=== PATIENT | female | born 1995 | race Caucasian/White ===

== ENCOUNTER 2017-08-21 22:44 | Emergency (ER) | payer OTHER ==
[2017-08-21 22:58] VITALS: RESP 18
[2017-08-21 23:19] LABS: Appearance,Urine Clear (Clear); Bilirubin,Urine Negative (Negative); Blood,Urine Negative (Negative); Color,Urine Colorless; Glucose,Urine (UA) Negative (Negative); Ketones,Urine Negative (Negative); Leukocyte Esterase,Urine Negative (Negative); Nitrite,Urine Negative (Negative); Protein,Urine Negative (Negative); Specific Gravity,Urine 1.008 (1.001-1.035); Urobilinogen,Urine <2.0 mg/dL (<2.0)
[2017-08-22] MEDS ORDERED: KETOROLAC 30 MG/ML 1 ML VIAL IVP STA (01:12)
[2017-08-22] MEDS ORDERED: SODIUM CHLORIDE 0.9% 1,000 ML IV STA (01:12)
--- NOTE | 2017-08-22 03:09 | XR ---
EXAMINATION TYPE: XR KUB DATE OF EXAM: 08/22/2017 COMPARISON: NONE HISTORY: Right lower quadrant pain TECHNIQUE: 2 views FINDINGS: There is no sign of intestinal obstruction or pneumoperitoneum. Fecal pattern is normal. Maria Fernanda ng bases are clear. There are no pathologic calcifications over the kidneys. There are clips from cho lecystectomy. There is no sign of a mass. IMPRESSION: Nonacute abdomen.
[2017-08-22] MEDS ORDERED: RX INFO: IV CONTRAST WAS GIVEN 1 EACH MISC MISCELLANE PRN (03:18)
--- NOTE | 2017-08-22 03:20 | ED ---
Abdominal Pain HPI - General Chief Complaint: Abdominal Pain Stated Complaint: lower abd pain Time Seen by Provider: 08/22/17 01:05 Source: patient Mode of arrival: ambulatory Limitations: no limitations - History of Present Illness Initial Comments: 22-year-old female patient presents to the emergency department today for complaints of right-sided abdominal pain that has been present for the last 2 months. Patient states her last 4-5 days she has also been having pain in her suprapubic region with urination. She denies any abnormal vaginal bleeding or discharge. She states that her periods have been irregular over the last couple of months. States that she had spotting throughout each month. Heavy periods at the beginning of July and August. She denies any nausea or vomiting with this. Denies any constipation or diarrhea. States that she was evaluated and can read in emergency department there in June and tested negative for . She denies any fevers or chills. Denies any dizziness or weakness. Patient denies any recent rash, shortness breath, chest pain, back pain, numbness, tingling, hematuria, dysuria, urinary urgency, urinary frequency , headache, visual changes, or any other complaints. - Related Data Home Medications Medication Instructions Recorded Confirmed No Known Home Medications [No 08/21/17 08/21/17 Known Home Medications] Allergies Allergy/AdvReac Type Severity Reaction Status Date / Time Penicillins Allergy Unknown Verified 08/21/17 22:58 Childhood Review of Systems ROS Statement: Those systems with pertinent positive or pertinent negative responses have been documented in the HPI. ROS Other: All systems not noted in ROS Statement are negative. Past Medical History Past Medical History: No Reported History History of Any Multi-Drug Resistant Organisms: None Reported Past Surgical History: Cholecystectomy Past Psychological History: No Psychological Hx Reported Smoking Status: Former smoker Past Alcohol Use History: Rare Past Drug Use History: Marijuana General Exam Limitations: no limitations General appearance: alert, in no apparent distress, other (This is a well- developed, well-nourished adult female patient in no acute distress. Vital signs upon presentation are temperature 99.6F, pulse 102, respirations 18, blood pressure 127/72, pulse ox 100% on room air.) Eye exam: Present: normal appearance, PERRL, EOMI. Absent: scleral icterus, conjunctival injection, periorbital swelling ENT exam: Present: normal exam, normal oropharynx, mucous membranes moist Respiratory exam: Present: normal lung sounds bilaterally. Absent: respiratory distress, wheezes, rales, rhonchi, stridor Cardiovascular Exam: Present: regular rate, normal rhythm, normal heart sounds. Absent: systolic murmur, diastolic murmur, rubs, gallop, clicks GI/Abdominal exam: Present: soft, tenderness (Tenderness over the right lower quadrant and right suprapubic region.), normal bowel sounds. Absent: distended , guarding, rebound, rigid Neurological exam: Present: alert, oriented X3, CN II-XII intact Psychiatric exam: Present: normal affect, normal mood Skin exam: Present: warm, dry, intact, normal color. Absent: rash Course Vital Signs 08/21/17 22:53 Temperature 99.6 F Pulse Rate 102 H Respiratory 18 Rate Blood Pressure 127/72 O2 Sat by Pulse 100 Oximetry Medical Decision Making - Medical Decision Making 22-year-old female patient presented to the emergency department today complaining of right-sided abdominal pain 2 months. Suprapubic pain 5 days. Physical examination did reveal right lower quadrant and suprapubic abdominal tenderness. Labs reviewed and were unremarkable. Urinalysis was negative. HCG was negative. We did perform KUB x-ray of the abdomen showed overall nonobstructive bowel gas pattern. CT of the abdomen and pelvis was obtained and showed a normal appendix and constipation. Did discuss findings with the patient. She is instructed to increase fluids. She is instructed to follow-up with primary care physician for recheck in 1-2 days. She is instructed to return here immediately for any new, worsening, or concerning symptoms. She verbalizes understanding and agrees this plan. - Lab Data Result diagrams: 08/22/17 00:51 08/22/17 00:51 Lab Results 08/21/17 08/21/17 08/22/17 Range/Units 22:59 22:59 00:51 WBC (3.8-10.6) k/uL RBC (3.80-5.40) m/uL Hgb (11.4-16.0) gm/dL Hct (34.0-46.0) % MCV (80.0-100.0) fL MCH (25.0-35.0) pg MCHC (31.0-37.0) g/dL RDW (11.5-15.5) % Plt Count (150-450) k/uL Neutrophils % % Lymphocytes % % Monocytes % % Eosinophils % % Basophils % % Neutrophils # (1.3-7.7) k/uL Lymphocytes # (1.0-4.8) k/uL Monocytes # (0-1.0) k/uL Eosinophils # (0-0.7) k/uL Basophils # (0-0.2) k/uL Sodium 143 (137-145) mmol/L Potassium 4.1 (3.5-5.1) mmol/L Chloride 106 (98-107) mmol/L Carbon Dioxide 24 (22-30) mmol/L Anion Gap 13 mmol/L BUN 16 (7-17) mg/dL Creatinine 0.70 (0.52-1.04) mg/dL Est GFR (CKD-EPI)AfAm >90 (>60 ml/min/1.73 sqM) Est GFR (CKD-EPI)NonAf >90 (>60 ml/min/1.73 sqM) Glucose 85 (74-99) mg/dL Calcium 9.9 (8.4-10.2) mg/dL Total Bilirubin 0.3 (0.2-1.3) mg/dL AST 20 (14-36) U/L ALT 15 (9-52) U/L Alkaline Phosphatase 57 (38-126) U/L Total Protein 7.6 (6.3-8.2) g/dL Albumin 4.6 (3.5-5.0) g/dL Amylase 74 (30-110) U/L Lipase 62 (23-300) U/L Urine Color Colorless Urine Appearance Clear (Clear) Urine pH 7.0 (5.0-8.0) Ur Specific [place] 1.008 (1.001-1.035) Urine Protein Negative (Negative) Urine Glucose (UA) Negative (Negative) Urine Ketones Negative (Negative) Urine Blood Negative (Negative) Urine Nitrite Negative (Negative) Urine Bilirubin Negative (Negative) Urine Urobilinogen <2.0 (<2.0) mg/dL Ur Leukocyte Esterase Negative (Negative) Urine HCG, Qual Not Detected (Not Detectd) 08/22/17 Range/Units 00:51 WBC 9.6 (3.8-10.6) k/uL RBC 4.31 (3.80-5.40) m/uL Hgb 12.9 (11.4-16.0) gm/dL Hct 38.3 (34.0-46.0) % MCV 88.8 (80.0-100.0) fL MCH 29.9 (25.0-35.0) pg MCHC 33.6 (31.0-37.0) g/dL RDW 12.7 (11.5-15.5) % Plt Count 343 (150-450) k/uL Neutrophils % 55 % Lymphocytes % 34 % Monocytes % 6 % Eosinophils % 3 % Basophils % 0 % Neutrophils # 5.2 (1.3-7.7) k/uL Lymphocytes # 3.3 (1.0-4.8) k/uL Monocytes # 0.6 (0-1.0) k/uL Eosinophils # 0.3 (0-0.7) k/uL Basophils # 0.0 (0-0.2) k/uL Sodium (137-145) mmol/L Potassium (3.5-5.1) mmol/L Chloride (98-107) mmol/L Carbon Dioxide (22-30) mmol/L Anion Gap mmol/L BUN (7-17) mg/dL Creatinine (0.52-1.04) mg/dL Est GFR (CKD-EPI)AfAm (>60 ml/min/1.73 sqM) Est GFR (CKD-EPI)NonAf (>60 ml/min/1.73 sqM) Glucose (74-99) mg/dL Calcium (8.4-10.2) mg/dL Total Bilirubin (0.2-1.3) mg/dL AST (14-36) U/L ALT (9-52) U/L Alkaline Phosphatase (38-126) U/L Total Protein (6.3-8.2) g/dL Albumin (3.5-5.0) g/dL Amylase (30-110) U/L Lipase (23-300) U/L Urine Color Urine Appearance (Clear) Urine pH (5.0-8.0) Ur Specific [place] (1.001-1.035) Urine Protein (Negative) Urine Glucose (UA) (Negative) Urine Ketones (Negative) Urine Blood (Negative) Urine Nitrite (Negative) Urine Bilirubin (Negative) Urine Urobilinogen (<2.0) mg/dL Ur Leukocyte Esterase (Negative) Urine HCG, Qual (Not Detectd) - Radiology Data Radiology results: report reviewed, image reviewed Two-view x-ray of the abdomen shows no sign of intestinal structure pneumoperitoneum. Fecal pattern is normal. Lung bases are clear. There is no sign of pathologic calcifications over the kidneys. There are clips from cholecystectomy. There is no sign of a mass. Impression by Dr. Reddy shows nonacute abdomen. CT of the abdomen and pelvis with contrast was obtained, report was reviewed in its entirety. Impression by Dr. Reddy shows constipation. Normal appendix. Disposition Clinical Impression: Abdominal pain Disposition: HOME SELF-CARE Condition: Good Instructions: Abdominal Pain (ED) Additional Instructions: Follow up with primary care physician for further evaluation. Return here immediately for any new, worsening, or concerning symptoms. Referrals: Tod Martínez MD [REFERRING] - 1-2 days Time of Disposition: 04:47
[2017-08-22 04:00] LABS: Basophils % (A) 0 %; Eosinophils # (A) 0.3 k/uL (0-0.7); Eosinophils % (A) 3 %; HCT 38.3 % (34.0-46.0); HGB 12.9 gm/dL (11.4-16.0); Lymphocytes # (A) 3.3 k/uL (1.0-4.8); Lymphocytes % (A) 34 %; MCH 29.9 pg (25.0-35.0); MCHC 33.6 g/dL (31.0-37.0); MCV 88.8 fL (80.0-100.0); Mean Platelet Volume 6.7; Monocytes # (A) 0.6 k/uL (0-1.0); Monocytes % (A) 6 %; Neutrophils # (A) 5.2 k/uL (1.3-7.7); Neutrophils % (A) 55 %; Platelet Count 343 k/uL (150-450); RBC 4.31 m/uL (3.80-5.40); RDW 12.7 % (11.5-15.5); WBC 9.6 k/uL (3.8-10.6)
--- NOTE | 2017-08-22 04:17 | CT ---
EXAMINATION TYPE: CT abdomen pelvis w con DATE OF EXAM: 08/22/2017 COMPARISON: NONE HISTORY: RLQ pain, and pain when urinating, no prior, neg hcg CT DLP: 327.60 mGycm Automated exposure control for dose reduction was used. TECHNIQUE: Helical acquisition of images was performed from the lung bases through the pelvis. CONTRAST: Performed without Oral Contrast and with IV Contrast, patient injected with 100 mL of Omnipaque 300. FINDINGS: Lung bases are clear. There is no pleural effusion. Heart size is normal. There is no pericardial eff usion. Liver spleen pancreas appear normal. There are clips from cholecystectomy. Bile ducts are not dilated . There is no adrenal mass. Kidneys show satisfactory contrast opacification. There is no hydronephrosi s. There is no retroperitoneal adenopathy. There is no ascites. There is no sign of free air. There i s retained fecal material in the colon. Bladder distends smoothly. There is no sign of a pelvic mass. Appendix appears normal. I see no bony destructive process. Uterus is anteverted. I see no intestinal wall thickening. There a re no dilated loops of small bowel. There is retained fecal material in the rectosigmoid colon. IMPRESSION: CONSTIPATION. NORMAL APPENDIX.
[2017-08-22 04:31] LABS: ALT 15 U/L (9-52); AST 20 U/L (14-36); Albumin 4.6 g/dL (3.5-5.0); Alkaline Phosphatase 57 U/L (38-126); Amylase 74 U/L (30-110); Anion Gap 13 mmol/L; Blood Urea Nitrogen 16 mg/dL (7-17); Calcium 9.9 mg/dL (8.4-10.2); Carbon Dioxide 24 mmol/L (22-30); Chloride 106 mmol/L (98-107); Glucose 85 mg/dL (74-99); Lipase 62 U/L (23-300); Potassium 4.1 mmol/L (3.5-5.1); Sodium 143 mmol/L (137-145); Total Bilirubin 0.3 mg/dL (0.2-1.3); Total Protein 7.6 g/dL (6.3-8.2)
[2017-08-22 05:39] VITALS: BP 133/74; PULSE 87; TEMP 98.9
== END 2017-08-22 05:39 | disposition home or self-care (01) ==
LOC: EC 22:44
DX: R10.30 Lower abdominal pain, unspecified (principal); N92.0 Excessive and frequent menstruation with regular cycle; K59.00 Constipation, unspecified; Z87.891 Personal history of nicotine dependence; Z90.49 Acquired absence of other specified parts of digestive tract; Z88.0 Allergy status to penicillin
CPT/HCPCS: 99284; 96374; 96361; 36415; 80053; 82150; 83690; 85025; 81003; 81025; 74018; 74177; J1885; Q9967

== ENCOUNTER 2018-01-02 02:28 | Observation (INO) | payer OTHER ==
[2018-01-02] MEDS ORDERED: ONDANSETRON 4 MG/2 ML VIAL IVP STA (02:58)
[2018-01-02] MEDS ORDERED: MORPHINE SULFATE 4 MG/ML SYRINGE IV STA (02:58)
[2018-01-02] MEDS ORDERED: SODIUM CHLORIDE 0.9% 1,000 ML IV STA (02:58)
--- NOTE | 2018-01-02 03:02 | ED ---
General Adult HPI - General Chief complaint: Abdominal Pain Stated complaint: abd/back pain Time Seen by Provider: 01/02/18 02:48 Source: patient, family, RN notes reviewed Mode of arrival: ambulatory Limitations: no limitations - History of Present Illness Initial comments: 22-year-old female presents to the emergency department for a chief complaint of lower abdominal pain 3 hours. Patient states it lasted for about 30 minutes yesterday but went away. Patient states she went to lay down today to let it pass but it would not go away. Patient states the pain is originating in the right lower abdomen. Patient states it is radiating to her back and to the left side of her abdomen. No nausea or vomiting. Patient states pain is worse with movement and hurts with each step she takes. Patient has no other complaints at this time including shortness of breath, chest pain, abdominal pain, nausea or vomiting, headache, or visual changes. - Related Data Home Medications Medication Instructions Recorded Confirmed Acetaminophen Tab [Tylenol Tab] 500 mg PO Q6HR PRN 01/02/18 01/02/18 Allergies Allergy/AdvReac Type Severity Reaction Status Date / Time Penicillins Allergy Unknown Verified 01/02/18 12:25 Childhood Review of Systems ROS Statement: Those systems with pertinent positive or pertinent negative responses have been documented in the HPI. ROS Other: All systems not noted in ROS Statement are negative. Past Medical History Past Medical History: No Reported History History of Any Multi-Drug Resistant Organisms: None Reported Past Surgical History: Cholecystectomy Past Psychological History: No Psychological Hx Reported Smoking Status: Former smoker Past Alcohol Use History: Rare Past Drug Use History: Marijuana - Past Family History Mother History Unknown: Yes Sister(s) Family Medical History: Diabetes Mellitus General Exam Limitations: no limitations General appearance: alert, in no apparent distress Head exam: Present: atraumatic, normocephalic, normal inspection Respiratory exam: Present: normal lung sounds bilaterally. Absent: respiratory distress, wheezes, rales, rhonchi, stridor Cardiovascular Exam: Present: regular rate, normal rhythm, normal heart sounds. Absent: systolic murmur, diastolic murmur, rubs, gallop, clicks GI/Abdominal exam: Present: soft, tenderness (RLQ and LLQ tenderness), guarding. Absent: rebound, rigid Course Vital Signs 01/02/18 01/02/18 01/02/18 02:30 04:30 06:00 Temperature 98.4 F 98.4 F Pulse Rate 118 H 74 95 Respiratory 20 15 16 Rate Blood Pressure 118/72 114/58 110/63 O2 Sat by Pulse 100 100 100 Oximetry Medical Decision Making - Medical Decision Making 22-year-old female presents to the emergency department for a chief complaint of right lower quadrant pain 3 hours. Pain was also apparent yesterday for 30 minutes that went away. Today, pain is not subsiding. On exam patient has exquisite right lower quadrant tenderness as well as mild left lower quadrant tenderness. CBC and CMP unremarkable. Urine hCG was positive. Serum hCG Quant is 455. Patient reports her periods was last week and ended yesterday. Ultrasound shows no intrauterine gestational sac seen. There is some brief fluid in the right adnexal region with some complex right adnexal density that measures 4.5 x 2.5 cm. No evidence of ovarian torsion. Possible ectopic . Patient will be admitted to Dr. Branch as spoken with by Dr. Encarnacion. Care was taken over by Dr Encarnacion at 0500. Patient was seen by Dr Encarnacion as well - Lab Data Result diagrams: 01/02/18 03:17 01/02/18 03:17 Lab Results 01/02/18 01/02/18 01/02/18 Range/Units 03:17 03:17 03:17 WBC 11.1 H (3.8-10.6) k/uL RBC 4.46 (3.80-5.40) m/uL Hgb 13.2 (11.4-16.0) gm/dL Hct 39.2 (34.0-46.0) % MCV 88.0 (80.0-100.0) fL MCH 29.5 (25.0-35.0) pg MCHC 33.5 (31.0-37.0) g/dL RDW 12.8 (11.5-15.5) % Plt Count 305 (150-450) k/uL Neutrophils % 62 % Lymphocytes % 29 % Monocytes % 6 % Eosinophils % 2 % Basophils % 0 % Neutrophils # 6.8 (1.3-7.7) k/uL Lymphocytes # 3.2 (1.0-4.8) k/uL Monocytes # 0.6 (0-1.0) k/uL Eosinophils # 0.3 (0-0.7) k/uL Basophils # 0.0 (0-0.2) k/uL Sodium 139 (137-145) mmol/L Potassium 4.2 (3.5-5.1) mmol/L Chloride 105 (98-107) mmol/L Carbon Dioxide 22 (22-30) mmol/L Anion Gap 12 mmol/L BUN 17 (7-17) mg/dL Creatinine 0.80 (0.52-1.04) mg/dL Est GFR (CKD-EPI)AfAm >90 (>60 ml/min/1.73 sqM) Est GFR (CKD-EPI)NonAf >90 (>60 ml/min/1.73 sqM) Glucose 92 (74-99) mg/dL Calcium 9.8 (8.4-10.2) mg/dL Total Bilirubin 0.4 (0.2-1.3) mg/dL AST 22 (14-36) U/L ALT 27 (9-52) U/L Alkaline Phosphatase 61 (38-126) U/L Total Protein 7.7 (6.3-8.2) g/dL Albumin 4.7 (3.5-5.0) g/dL Amylase 77 (30-110) U/L Lipase 53 (23-300) U/L HCG, Quant mIU/mL Urine Color Urine Appearance (Clear) Urine pH (5.0-8.0) Ur Specific [place] (1.001-1.035) Urine Protein (Negative) Urine Glucose (UA) (Negative) Urine Ketones (Negative) Urine Blood (Negative) Urine Nitrite (Negative) Urine Bilirubin (Negative) Urine Urobilinogen (<2.0) mg/dL Ur Leukocyte Esterase (Negative) Urine HCG, Qual Detected (Not Detectd) 01/02/18 01/02/18 Range/Units 03:17 03:17 WBC (3.8-10.6) k/uL RBC (3.80-5.40) m/uL Hgb (11.4-16.0) gm/dL Hct (34.0-46.0) % MCV (80.0-100.0) fL MCH (25.0-35.0) pg MCHC (31.0-37.0) g/dL RDW (11.5-15.5) % Plt Count (150-450) k/uL Neutrophils % % Lymphocytes % % Monocytes % % Eosinophils % % Basophils % % Neutrophils # (1.3-7.7) k/uL Lymphocytes # (1.0-4.8) k/uL Monocytes # (0-1.0) k/uL Eosinophils # (0-0.7) k/uL Basophils # (0-0.2) k/uL Sodium (137-145) mmol/L Potassium (3.5-5.1) mmol/L Chloride (98-107) mmol/L Carbon Dioxide (22-30) mmol/L Anion Gap mmol/L BUN (7-17) mg/dL Creatinine (0.52-1.04) mg/dL Est GFR (CKD-EPI)AfAm (>60 ml/min/1.73 sqM) Est GFR (CKD-EPI)NonAf (>60 ml/min/1.73 sqM) Glucose (74-99) mg/dL Calcium (8.4-10.2) mg/dL Total Bilirubin (0.2-1.3) mg/dL AST (14-36) U/L ALT (9-52) U/L Alkaline Phosphatase (38-126) U/L Total Protein (6.3-8.2) g/dL Albumin (3.5-5.0) g/dL Amylase (30-110) U/L Lipase (23-300) U/L HCG, Quant 455.2 mIU/mL Urine Color Colorless Urine Appearance Clear (Clear) Urine pH 7.0 (5.0-8.0) Ur Specific [place] 1.008 (1.001-1.035) Urine Protein Negative (Negative) Urine Glucose (UA) Negative (Negative) Urine Ketones Negative (Negative) Urine Blood Negative (Negative) Urine Nitrite Negative (Negative) Urine Bilirubin Negative (Negative) Urine Urobilinogen <2.0 (<2.0) mg/dL Ur Leukocyte Esterase Negative (Negative) Urine HCG, Qual (Not Detectd) Disposition Clinical Impression: Abdominal pain, Disposition: ADMITTED IP TO THIS [facility] Is patient prescribed a controlled substance at d/c from ED?: No Time of Disposition: 05:07
[2018-01-02 03:31] LABS: Basophils % (A) 0 %; Eosinophils # (A) 0.3 k/uL (0-0.7); Eosinophils % (A) 2 %; HCT 39.2 % (34.0-46.0); HGB 13.2 gm/dL (11.4-16.0); Lymphocytes # (A) 3.2 k/uL (1.0-4.8); Lymphocytes % (A) 29 %; MCH 29.5 pg (25.0-35.0); MCHC 33.5 g/dL (31.0-37.0); Mean Platelet Volume 6.5; Monocytes # (A) 0.6 k/uL (0-1.0); Monocytes % (A) 6 %; Neutrophils # (A) 6.8 k/uL (1.3-7.7); Neutrophils % (A) 62 %; Platelet Count 305 k/uL (150-450); RBC 4.46 m/uL (3.80-5.40); RDW 12.8 % (11.5-15.5); WBC 11.1 k/uL (3.8-10.6)
[2018-01-02 03:34] LABS: Appearance,Urine Clear (Clear); Bilirubin,Urine Negative (Negative); Blood,Urine Negative (Negative); Color,Urine Colorless; Glucose,Urine (UA) Negative (Negative); Ketones,Urine Negative (Negative); Leukocyte Esterase,Urine Negative (Negative); Nitrite,Urine Negative (Negative); Protein,Urine Negative (Negative); Specific Gravity,Urine 1.008 (1.001-1.035); Urobilinogen,Urine <2.0 mg/dL (<2.0)
[2018-01-02 03:43] LABS: ALT 27 U/L (9-52); AST 22 U/L (14-36); Albumin 4.7 g/dL (3.5-5.0); Alkaline Phosphatase 61 U/L (38-126); Amylase 77 U/L (30-110); Anion Gap 12 mmol/L; Blood Urea Nitrogen 17 mg/dL (7-17); Calcium 9.8 mg/dL (8.4-10.2); Carbon Dioxide 22 mmol/L (22-30); Chloride 105 mmol/L (98-107); Glucose 92 mg/dL (74-99); Lipase 53 U/L (23-300); Potassium 4.2 mmol/L (3.5-5.1); Sodium 139 mmol/L (137-145); Total Bilirubin 0.4 mg/dL (0.2-1.3); Total Protein 7.7 g/dL (6.3-8.2)
--- NOTE | 2018-01-02 04:01 | US ---
EXAMINATION TYPE: Transabdominal DATE OF EXAM: 09/14/17 COMPARISON: NONE CLINICAL HISTORY: RLQ Pain. HCG was detected in the patient's urine after ultrasound was performed. P atient states she had her LMP 1 week ago. EXAM PERFORMED: Transvaginal (TV) and Transabdominal (TA) EXAM MEASUREMENTS: GESTATIONAL AGE / DATING Physician Established: Not yet established Dates by LMP: LMP unknown Dates by First Scan: No previous this is first scan Dates by Current Scan for: No IUP seen at this time MATERNAL ANATOMY Uterus: 6.8 x 3.7 x 3.7 cm Right Ovary: Not visualized with certainty Left Ovary: 2.3 x 1.6 x 1.5 cm Post CDS / Adnexa: Complex fluid visualized within the cul de sac. There is a complex area visualized within the right adnexa measuring 5.4 x 2.7 x 5.1 cm. There is vascularity within this area. Presence of free fluid: Yes, within the right adnexa GESTATION / SURVEY IUP: No IUP seen at this time Beta HcG (if available): Not available at this time, detected in urine. No IUP visualized. Complex fluid visualized within the cul de sac. There is a complex area visualized within the right adnexa measuring 5.4 x 2.7 x 5.1 cm. There is vascularity within this area. Possibl e ectopic vs other IMPRESSION: No intrauterine gestational sac seen. There is some free fluid in the right adnexal region with some complex right adnexal density that measures 4.5 x 2.5 cm. No evidence of ovarian torsion. The possibi lity of ectopic should be considered.
[2018-01-02] MEDS ORDERED: NALOXONE 0.4 MG/ML 1 ML VIAL IV PRN (05:11)
[2018-01-02] MEDS ORDERED: ACETAMINOPHEN TAB 500 MG TAB PO PRN (05:11)
[2018-01-02] MEDS: SODIUM CHLORIDE 0.9% 1,000 ML IV SCH ×2 (05:30→15:38)
[2018-01-02 06:48] VITALS: BMI 21.9
--- NOTE | 2018-01-02 09:41 | P.HPOB ---
History of Present Illness H&P Date: 01/02/18 Chief Complaint: Right lower quadrant pain for 2 days This is a 22-year-old white female 2 para 0010 LMP 12/22/2017 at 1-4/7 weeks' gestation. Patient states she began experiencing right lower quadrant pain 2 days ago, worse with walking and straining at the commode. The pain improved, but got worse again last night. It is now an 6-8 out of 10, and radiating to the back. She denies lightheadedness or dizziness. She has scant vaginal bleeding. She is using nothing currently for contraception. She denies nausea and vomiting or any other symptomatology. Past medical history is essentially negative. Past surgical history cholecystectomy 2011. Current medications none. ALLERGIES none known. Social history patient is a recovered methadone addict, last used in 2016. She previously used marijuana. She denies tobacco or alcohol use. She is recently . [employer] history menarche began at age of 11 with 30 day interval and 5-7 day duration. Most recent menses lasted 7 days. She had a chlamydial infection treated with antibiotics in 2016. She also had a spontaneous AB in 2016 not requiring D&C. She denies HPV, HSV, or gonorrheal infections. Family history is unremarkable and noncontributory. On exam this is a pleasant young female, 5 foot 2 inches, 128 pounds, vital signs are stable and patient is afebrile. Pulse is 96, blood pressure 110/68. Gen. physical exam is remarkable for 7 tattoos. Chest is clear in all mancera anteriorly and posteriorly. Cardiac exam reveals regular rate and rhythm with no murmur click or rub. Abdomen is soft, tender in the right lower quadrant with minimal rebound, no CVA tenderness. Extremities reveal no edema. Pelvic exam reveals a small anteverted anteflex uterus, right adnexal fullness and tenderness, left adnexa negative. There is dark red vaginal bleeding on the examination glove. Hemoglobin 13.2, hematocrit 39.2, platelets 305,000, WBCs 11.1. Beta hCG 455. AST, ALTs, BUN/creatinine all normal. Ultrasound reveals a uterus 6.8 x 3.7 x 3.7 cm, left adnexa negative, right adnexa with 8 complex appearing cyst 5.4 x 2.7 x 5.1 cm, suspicious for ectopic . No obvious fetus or heartbeat is noted. Intrauterine cavity is negative. Impression: 1-4/7 weeks , suspected right ectopic . Plan: I discussed with the patient operative intervention versus methotrexate. We have decided to proceed with methotrexate, 50 mg/m. We will dose this through the pharmacy an enterprise systems administrator at this time. We will watch the patient overnight, clear liquids, if she does well clinically likely discharge home in the morning. Review of Systems Constitutional: Reports as per HPI Past Medical History Past Medical History: No Reported History Additional Past Medical History / Comment(s): had a miscarraige in 2016 History of Any Multi-Drug Resistant Organisms: None Reported Past Surgical History: Cholecystectomy Past Psychological History: No Psychological Hx Reported Smoking Status: Never smoker Past Alcohol Use History: Rare Past Drug Use History: Marijuana - Past Family History Mother History Unknown: Yes Sister(s) Family Medical History: Diabetes Mellitus Medications and Allergies Home Medications Medication Instructions Recorded Confirmed Type No Known Home Medications 08/21/17 01/02/18 History Allergies Allergy/AdvReac Type Severity Reaction Status Date / Time Penicillins Allergy Unknown Verified 01/02/18 02:36 Childhood Exam Vital Signs Temp Pulse Pulse Resp BP BP Pulse Ox 01/02/18 06:36 98.4 F 96 18 110/68 100 01/02/18 06:00 98.4 F 95 16 110/63 100 01/02/18 04:30 74 15 114/58 100 01/02/18 02:30 98.4 F 118 H 20 118/72 100 Intake and Output 01/01/18 01/02/18 01/02/18 22:59 06:59 14:59 Output Total 500 Balance -500 Output: Urine 500 Other: Voiding Method Toilet # Voids 1 Weight 54.431 kg See dictation under HPI please Results Result Diagrams: 01/02/18 03:17 01/02/18 03:17 Abnormal Lab Results - Last 24 Hours (Table) 01/02/18 Range/Units 03:17 WBC 11.1 H (3.8-10.6) k/uL Assessment and Plan Assessment: Right ectopic at 1-4/7 weeks' gestation Plan: Due to the very early gestational age, and patient's stable clinical status, we will proceed with methotrexate per protocol, dosed at 50 mg/m. I will continue to observe the patient through the night, and likely discharge home in the morning. Type and screen. Time with Patient: Greater than 30
[2018-01-02] MEDS ORDERED: METHOTREXATE SODIUM (PF) 25 MG/ML 2 ML VIAL IM ONE ×3 (09:45→11:00)
[2018-01-02] MEDS: MORPHINE SULFATE 2 MG/ML SYRINGE IVP PRN ×3 (10:29→20:09)
[2018-01-03 00:39] VITALS: TEMP 97.9
[2018-01-03] MEDS: MORPHINE SULFATE 2 MG/ML SYRINGE IVP PRN (00:40)
[2018-01-03] MEDS: SODIUM CHLORIDE 0.9% 1,000 ML IV SCH (00:45)
[2018-01-03] MEDS ORDERED: IBUPROFEN 400 MG TAB PO PRN (06:22)
--- NOTE | 2018-01-03 07:46 | P.DS ---
Providers Date of admission: 01/02/18 05:39 Expected date of discharge: 01/03/18 Attending physician: Saloni Branch Primary care physician: Stated None Hospital Course: This is a 22-year-old white female 2 para 0010 who presented to the emergency room with right lower quadrant pain. Beta hCG was done and was positive, by last menstrual period patient would be 1 week and 4 days. Hemoglobin and vital signs are stable. Ultrasound revealed negative intrauterine cavity with a complex area noted on the right adnexa, consistent with ectopic . Methotrexate was dosed and given, please see admitting H&P for details. This morning the patient is having a small amount of dark red vaginal bleeding. Her pain is improved, she still is tender in the right lower quadrant. She is voiding, ambulating, and passing flatus without difficulty. She is tolerating regular food. Her vital signs are stable and she is hemodynamically stable as well. Plan is to manage patient conservatively. The methotrexate protocol will be followed, lab slips are given for repeat blood work. Patient's blood type is A+ , RhoGam is not indicated. Patient will be discharged home today, she is in good condition for discharge. She will use [id number] ibuprofen products as needed for pain. I've asked her to call me with any lightheadedness or dizziness, with an increase in the pain, with any issues not alleviated by over- the-counter medications, or indeed with any concerns. She will follow-up in the office with me in 1 week and will call for that appointment. Patient Condition at Discharge: Good Plan - Discharge Summary New Discharge Prescriptions: No Action Acetaminophen Tab [Tylenol Tab] 500 mg PO Q6HR PRN PRN Reason: Pain Discharge Medication List Acetaminophen Tab [Tylenol Tab] 500 mg PO Q6HR PRN 01/02/18 [History] Follow up Appointment(s)/Referral(s): None,Stated [Primary Care Provider] - 1 Week Saloni Branch MD [STAFF PHYSICIAN] - 1 Week Discharge Disposition: HOME SELF-CARE
[2018-01-03 09:44] LABS: HCT 33.5 % (34.0-46.0); HGB 11.1 gm/dL (11.4-16.0); MCH 29.5 pg (25.0-35.0); MCHC 33.3 g/dL (31.0-37.0); MCV 88.6 fL (80.0-100.0); RBC 3.78 m/uL (3.80-5.40); RDW 12.9 % (11.5-15.5); WBC 6.1 k/uL (3.8-10.6)
[2018-01-03 09:45] LABS: Basophils % (A) 0 %; Eosinophils # (A) 0.1 k/uL (0-0.7); Eosinophils % (A) 2 %; Lymphocytes # (A) 1.7 k/uL (1.0-4.8); Lymphocytes % (A) 27 %; Mean Platelet Volume 6.6; Monocytes # (A) 0.5 k/uL (0-1.0); Monocytes % (A) 8 %; Neutrophils # (A) 3.8 k/uL (1.3-7.7); Neutrophils % (A) 62 %; Platelet Count 250 k/uL (150-450)
[2018-01-03 09:46] VITALS: BP 111/74; PULSE 68; RESP 18
== END 2018-01-03 10:54 | disposition home or self-care (01) ==
LOC: EC 02:28 → 6PED 05:39
PROVIDERS: ADMIT Obstetrics & Gynecology; ATTEND Obstetrics & Gynecology
DX: O00.90 Unspecified ectopic pregnancy without intrauterine pregnancy (principal); Z3A.01 Less than 8 weeks gestation of pregnancy; Z88.0 Allergy status to penicillin; Z90.49 Acquired absence of other specified parts of digestive tract; Z87.891 Personal history of nicotine dependence; F11.21 Opioid dependence, in remission; Z86.19 Personal history of other infectious and parasitic diseases; Z87.59 Personal history of other complications of pregnancy, childbirth and the puerperium; Z83.3 Family history of diabetes mellitus
CPT/HCPCS: 99285 ×2; 96374 ×2; 96375 ×2; 96361 ×2; 96372; 96376 ×2; 36415; 86900; 86901; 80053; 82150; 83690; 85025 ×2; 86850; 81003; 81025; 84702; 87086; 93975; 76801; 76817; G0378 ×2; J2270 ×3; J9260; J2405

== ENCOUNTER → 2018-01-06 | Outpatient (CLI) | payer OTHER | END | disposition home or self-care (01) | LOC: LABWHC1 11:21 | PROVIDERS: ATTEND Obstetrics & Gynecology | DX: O00.90 Unspecified ectopic pregnancy without intrauterine pregnancy (principal); Z3A.00 Weeks of gestation of pregnancy not specified | CPT/HCPCS: 36415; 84702 ==

== ENCOUNTER → 2018-01-09 | Outpatient (CLI) | payer OTHER ==
[2018-01-09 20:22] LABS: HGB 12.6 gm/dL (11.4-16.0); MCH 29.9 pg (25.0-35.0); MCHC 33.2 g/dL (31.0-37.0); Mean Platelet Volume 6.1; Platelet Count 383 k/uL (150-450); RBC 4.22 m/uL (3.80-5.40); RDW 13.3 % (11.5-15.5); WBC 7.3 k/uL (3.8-10.6)
[2018-01-09 20:30] LABS: ALT 64 U/L (9-52); AST 22 U/L (14-36); Blood Urea Nitrogen 13 mg/dL (7-17)
[2018-01-09 20:47] LABS: HCG,Quantitative Serum 151.8 mIU/mL
== END | disposition home or self-care (01) ==
LOC: LABMAIN 19:40
PROVIDERS: ATTEND Obstetrics & Gynecology
DX: O00.90 Unspecified ectopic pregnancy without intrauterine pregnancy (principal); Z3A.00 Weeks of gestation of pregnancy not specified
CPT/HCPCS: 36415; 82565; 84450; 84460; 84520; 84702; 85027

== ENCOUNTER → 2018-02-07 | Outpatient (CLI) | payer OTHER ==
[2018-02-07 10:13] LABS: Basophils % (A) 1 %; Eosinophils # (A) 0.2 k/uL (0-0.7); Eosinophils % (A) 3 %; HCT 39.9 % (34.0-46.0); HGB 12.9 gm/dL (11.4-16.0); Lymphocytes # (A) 3.1 k/uL (1.0-4.8); Lymphocytes % (A) 45 %; MCH 29.4 pg (25.0-35.0); MCHC 32.3 g/dL (31.0-37.0); Mean Platelet Volume 6.1; Monocytes # (A) 0.4 k/uL (0-1.0); Monocytes % (A) 6 %; Neutrophils % (A) 43 %; Platelet Count 336 k/uL (150-450); RBC 4.39 m/uL (3.80-5.40); RDW 13.3 % (11.5-15.5); WBC 6.9 k/uL (3.8-10.6)
[2018-02-07 11:01] LABS: ALT 35 U/L (9-52); AST 23 U/L (14-36); Albumin 4.8 g/dL (3.5-5.0); Alkaline Phosphatase 66 U/L (38-126); Anion Gap 12 mmol/L; Blood Urea Nitrogen 16 mg/dL (7-17); Carbon Dioxide 25 mmol/L (22-30); Chloride 103 mmol/L (98-107); Cholesterol 231 mg/dL (<200); Glucose 89 mg/dL (74-99); HDL Cholesterol 64 mg/dL (40-60); LDL Cholesterol,Calculated 151 mg/dL (0-99); Potassium 4.9 mmol/L (3.5-5.1); Sodium 140 mmol/L (137-145); Total Bilirubin 0.4 mg/dL (0.2-1.3); Total Protein 7.9 g/dL (6.3-8.2); Triglycerides 79 mg/dL (<150)
[2018-02-07 11:16] LABS: HCG,Quantitative Serum <2.4 mIU/mL; T4, Free (Free Thyroxine) 0.96 ng/dL (0.78-2.19)
[2018-02-07 17:36] LABS: Vitamin D 25 Hydroxy 12.8 ng/mL (30.0-100.0)
[2018-02-07 18:35] LABS: Hemoglobin A1C 5.2 % (4.0-6.0)
== END | disposition home or self-care (01) ==
LOC: LABWHC1 09:15
PROVIDERS: ATTEND Nurse Practitioner Family
DX: O00.90 Unspecified ectopic pregnancy without intrauterine pregnancy (principal); R30.0 Dysuria; Z83.3 Family history of diabetes mellitus; Z83.49 Family history of other endocrine, nutritional and metabolic diseases
CPT/HCPCS: 36415; 80053; 80061; 82306; 82607; 82746; 83036; 84439; 84443; 84702; 85025

== ENCOUNTER 2019-03-04 06:00 | Observation (INO) | payer OTHER ==
[2019-03-04] MEDS ORDERED: SODIUM CHLORIDE 0.9% 1,000 ML IV STA (06:15)
[2019-03-04] MEDS ORDERED: ONDANSETRON 4 MG/2 ML VIAL IVP STA (06:15)
[2019-03-04] MEDS ORDERED: HYDROmorphone 0.5 MG/0.5 ML SYRINGE IVP STA ×2 (06:15→08:57)
--- NOTE | 2019-03-04 06:20 | ED ---
Abdominal Pain HPI - General Chief Complaint: Abdominal Pain Stated Complaint: Abdominal Pain Time Seen by Provider: 03/04/19 06:09 Source: patient, RN notes reviewed Mode of arrival: ambulatory Limitations: no limitations - History of Present Illness Initial Comments: This a 23-year-old female presents emergency Department chief complaint severe left lower quadrant abdominal pain. Patient states she received methotrexate on 02/23/2019 for an ectopic and [facility]. Patient states that she was told she may need another dose but has not been able follow-up with EXPLORATION ENGINEER. Patient states that she is in severe pain in the left side. Patient states that she had ectopic last year the right side and which this was treated by Dr. Branch. Patient states she does not see Dr. Branch a regular basis as well as on- call physician at that time. Patient denies any current nausea vomiting diarrhea constipation or fevers or chills. She has no current chest pain no back pain. Patient is a 2 - Related Data Home Medications Medication Instructions Recorded Confirmed HYDROcodone/APAP 5-325MG [[place] 1 - 2 tab PO Q6H PRN 03/04/19 03/04/19 5-325] Allergies Allergy/AdvReac Type Severity Reaction Status Date / Time Penicillins Allergy Unknown Verified 03/04/19 07:56 Childhood Review of Systems ROS Statement: Those systems with pertinent positive or pertinent negative responses have been documented in the HPI. ROS Other: All systems not noted in ROS Statement are negative. Past Medical History Past Medical History: No Reported History Additional Past Medical History / Comment(s): ectopic pregnancies X2, 1 miscarriage, History of Any Multi-Drug Resistant Organisms: None Reported Past Surgical History: Cholecystectomy Past Psychological History: No Psychological Hx Reported Smoking Status: Former smoker Past Alcohol Use History: Rare Past Drug Use History: Marijuana - Past Family History Mother History Unknown: Yes Sister(s) Family Medical History: Diabetes Mellitus General Exam Limitations: no limitations General appearance: alert, in no apparent distress Head exam: Present: atraumatic, normocephalic, normal inspection Eye exam: Present: normal appearance, PERRL, EOMI. Absent: scleral icterus, conjunctival injection, periorbital swelling ENT exam: Present: normal exam, mucous membranes moist Neck exam: Present: normal inspection, full ROM. Absent: tenderness, meningismus, lymphadenopathy Respiratory exam: Present: normal lung sounds bilaterally. Absent: respiratory distress, wheezes, rales, rhonchi, stridor Cardiovascular Exam: Present: regular rate, normal rhythm, normal heart sounds. Absent: systolic murmur, diastolic murmur, rubs, gallop, clicks GI/Abdominal exam: Present: soft, tenderness, normal bowel sounds. Absent: distended, guarding, rebound, rigid Back exam: Absent: CVA tenderness (R), CVA tenderness (L) Neurological exam: Present: alert Skin exam: Present: warm, dry, intact, normal color. Absent: rash Course Vital Signs 03/04/19 03/04/19 03/04/19 06:05 06:27 06:30 Temperature 98.3 F Pulse Rate 89 Respiratory 18 Rate Blood Pressure 95/64 112/72 O2 Sat by Pulse 100 99 98 Oximetry 03/04/19 03/04/19 03/04/19 06:40 06:50 07:00 Temperature Pulse Rate Respiratory Rate Blood Pressure 111/78 108/60 108/60 O2 Sat by Pulse 100 100 100 Oximetry 03/04/19 03/04/19 03/04/19 07:10 07:20 07:40 Temperature Pulse Rate 81 Respiratory 16 Rate Blood Pressure 102/69 110/67 105/68 O2 Sat by Pulse 100 99 Oximetry 03/04/19 09:00 Temperature Pulse Rate 76 Respiratory 16 Rate Blood Pressure 110/67 O2 Sat by Pulse 99 Oximetry - Reevaluation(s) Reevaluation #1: 03/04/19 06:19 Labs were ordered including CBC, CMP, type and screen PT INR bedside ultrasound will be performed by Dr. Leonardo, official ultrasound was ordered and ultrasound was paged Medical Decision Making - Medical Decision Making 23-year-old female presented to the ER for left-sided abdominal pain ultrasound, urine, labs are obtained. Prior labs from [place] were obtained which showed a beta hCG of 6668, case discussed with Dr. Nagel who evaluated the patient will take patient to the OR for ectopic . - Lab Data Result diagrams: 03/04/19 07:06 03/04/19 06:24 Lab Results 03/04/19 03/04/19 03/04/19 Range/Units 06:24 06:24 06:30 WBC (3.8-10.6) k/uL RBC (3.80-5.40) m/uL Hgb (11.4-16.0) gm/dL Hct (34.0-46.0) % MCV (80.0-100.0) fL MCH (25.0-35.0) pg MCHC (31.0-37.0) g/dL RDW (11.5-15.5) % Plt Count (150-450) k/uL Neutrophils % % Lymphocytes % % Monocytes % % Eosinophils % % Basophils % % Neutrophils # (1.3-7.7) k/uL Lymphocytes # (1.0-4.8) k/uL Monocytes # (0-1.0) k/uL Eosinophils # (0-0.7) k/uL Basophils # (0-0.2) k/uL PT 9.9 (9.0-12.0) sec INR 0.9 (<1.2) APTT 18.2 L (22.0-30.0) sec Sodium 140 (137-145) mmol/L Potassium 4.2 (3.5-5.1) mmol/L Chloride 106 (98-107) mmol/L Carbon Dioxide 22 (22-30) mmol/L Anion Gap 12 mmol/L BUN 12 (7-17) mg/dL Creatinine 0.59 (0.52-1.04) mg/dL Est GFR (CKD-EPI)AfAm >90 (>60 ml/min/1.73 sqM) Est GFR (CKD-EPI)NonAf >90 (>60 ml/min/1.73 sqM) Glucose 100 H (74-99) mg/dL Plasma Lactic Acid Arun 2.0 (0.7-2.0) mmol/L Calcium 9.6 (8.4-10.2) mg/dL Total Bilirubin 0.4 (0.2-1.3) mg/dL AST 27 (14-36) U/L ALT 47 (9-52) U/L Alkaline Phosphatase 64 (38-126) U/L Total Protein 7.0 (6.3-8.2) g/dL Albumin 4.0 (3.5-5.0) g/dL Lipase 35 (23-300) U/L HCG, Quant 5018.2 mIU/mL Urine Color Urine Appearance (Clear) Urine pH (5.0-8.0) Ur Specific [place] (1.001-1.035) Urine Protein (Negative) Urine Glucose (UA) (Negative) Urine Ketones (Negative) Urine Blood (Negative) Urine Nitrite (Negative) Urine Bilirubin (Negative) Urine Urobilinogen (<2.0) mg/dL Ur Leukocyte Esterase (Negative) Urine RBC (0-5) /hpf Urine WBC (0-5) /hpf Ur Squamous Epith Cells (0-4) /hpf Urine Bacteria (None) /hpf Urine Mucus (None) /hpf Blood Type Blood Type Recheck Bld Type Recheck Status Antibody Screen Spec Expiration Date 03/04/19 03/04/19 03/04/19 Range/Units 06:30 07:06 07:40 WBC 8.2 (3.8-10.6) k/uL RBC 3.97 (3.80-5.40) m/uL Hgb 11.6 (11.4-16.0) gm/dL Hct 34.7 (34.0-46.0) % MCV 87.4 (80.0-100.0) fL MCH 29.2 (25.0-35.0) pg MCHC 33.4 (31.0-37.0) g/dL RDW 14.0 (11.5-15.5) % Plt Count 251 (150-450) k/uL Neutrophils % 58 % Lymphocytes % 32 % Monocytes % 4 % Eosinophils % 4 % Basophils % 1 % Neutrophils # 4.7 (1.3-7.7) k/uL Lymphocytes # 2.6 (1.0-4.8) k/uL Monocytes # 0.4 (0-1.0) k/uL Eosinophils # 0.3 (0-0.7) k/uL Basophils # 0.1 (0-0.2) k/uL PT (9.0-12.0) sec INR (<1.2) APTT (22.0-30.0) sec Sodium (137-145) mmol/L Potassium (3.5-5.1) mmol/L Chloride (98-107) mmol/L Carbon Dioxide (22-30) mmol/L Anion Gap mmol/L BUN (7-17) mg/dL Creatinine (0.52-1.04) mg/dL Est GFR (CKD-EPI)AfAm (>60 ml/min/1.73 sqM) Est GFR (CKD-EPI)NonAf (>60 ml/min/1.73 sqM) Glucose (74-99) mg/dL Plasma Lactic Acid Arun (0.7-2.0) mmol/L Calcium (8.4-10.2) mg/dL Total Bilirubin (0.2-1.3) mg/dL AST (14-36) U/L ALT (9-52) U/L Alkaline Phosphatase (38-126) U/L Total Protein (6.3-8.2) g/dL Albumin (3.5-5.0) g/dL Lipase (23-300) U/L HCG, Quant mIU/mL Urine Color Light Yellow Urine Appearance Cloudy H (Clear) Urine pH 6.5 (5.0-8.0) Ur Specific [place] 1.010 (1.001-1.035) Urine Protein Negative (Negative) Urine Glucose (UA) Negative (Negative) Urine Ketones Negative (Negative) Urine Blood Moderate H (Negative) Urine Nitrite Negative (Negative) Urine Bilirubin Negative (Negative) Urine Urobilinogen <2.0 (<2.0) mg/dL Ur Leukocyte Esterase Small H (Negative) Urine RBC 12 H (0-5) /hpf Urine WBC 12 H (0-5) /hpf Ur Squamous Epith Cells 3 (0-4) /hpf Urine Bacteria Few H (None) /hpf Urine Mucus Rare H (None) /hpf Blood Type A Positive Blood Type Recheck A Pos Bld Type Recheck Status No Antibody Screen NEGATIVE Spec Expiration Date 03/07/2019 233 Disposition Clinical Impression: Ectopic Disposition: ADMITTED IP TO THIS [facility] Referrals: None,Stated [Primary Care Provider] - 1-2 days
[2019-03-04 06:56] LABS: ALT 47 U/L (9-52); AST 27 U/L (14-36); African American GFR (CKD) >90 (>60 ml/min/1.73 sqM); Alkaline Phosphatase 64 U/L (38-126); Anion Gap 12 mmol/L; Blood Urea Nitrogen 12 mg/dL (7-17); Calcium 9.6 mg/dL (8.4-10.2); Carbon Dioxide 22 mmol/L (22-30); Chloride 106 mmol/L (98-107); Glucose 100 mg/dL (74-99); Potassium 4.2 mmol/L (3.5-5.1); Sodium 140 mmol/L (137-145); Total Bilirubin 0.4 mg/dL (0.2-1.3)
[2019-03-04 07:06] LABS: INR 0.9 (<1.2); Prothrombin Time 9.9 sec (9.0-12.0)
[2019-03-04 07:10] LABS: Partial Thromboplastin Time 18.2 sec (22.0-30.0)
[2019-03-04 07:12] LABS: HCG,Quantitative Serum 5018.2 mIU/mL
[2019-03-04 07:16] LABS: Basophils # (A) 0.1 k/uL (0-0.2); Basophils % (A) 1 %; Eosinophils # (A) 0.3 k/uL (0-0.7); Eosinophils % (A) 4 %; HCT 34.7 % (34.0-46.0); HGB 11.6 gm/dL (11.4-16.0); Lymphocytes # (A) 2.6 k/uL (1.0-4.8); Lymphocytes % (A) 32 %; MCH 29.2 pg (25.0-35.0); MCHC 33.4 g/dL (31.0-37.0); MCV 87.4 fL (80.0-100.0); Mean Platelet Volume 6.3; Monocytes # (A) 0.4 k/uL (0-1.0); Monocytes % (A) 4 %; Neutrophils # (A) 4.7 k/uL (1.3-7.7); Neutrophils % (A) 58 %; Platelet Count 251 k/uL (150-450); RBC 3.97 m/uL (3.80-5.40); WBC 8.2 k/uL (3.8-10.6)
--- NOTE | 2019-03-04 07:52 | US ---
EXAMINATION TYPE: Transabdominal DATE OF EXAM: 03/04/2019 7:35 AM COMPARISON: Previous study dated 01/02/2018. CLINICAL HISTORY: Rule out ruptured ectopic . EXAM PERFORMED: Transvaginal (TV) and Transabdominal (TA) EXAM MEASUREMENTS: GESTATIONAL AGE / DATING Physician Established: Not yet established Dates by LMP: 01/13/2019 (7 weeks/1 days) EDC: 10/20/2019 Dates by First Scan: No previous this is first scan Dates by Current Scan for: no IUP identified MATERNAL ANATOMY Uterus: 9.1 x 3.6 x 4.9 cm Right Ovary: 1.4 x 2.6 x 1.8 cm Left Ovary: 1.9 x 1.7 x 2.5 cm Post CDS / Adnexa: complex hypoechoic mass measuring 7.1 x 1.9 x 2.9cm with a small amount of free fl uid/blood at the end. Presence of free fluid: small amount GESTATION / SURVEY Patient has history of [place] and given methotrexate o n the February,. Patient is in a great deal of pain and bleeding. Date of LMP: 01/13/2019 Beta HcG (if available): 5018 Complex hypoechoic mass posterior uterus and extending into left adnexa. Suspicious for ectopic pregn leif, given patient history, positive Beta HcG, and no interuterine seen. Per patient , she was given a dose of methotrexate on the 23 of February, approximately 10 days ag o. IMPRESSION: 1. WE HAVE NOT IDENTIFIED INTRAUTERINE GESTATION. 2. COMPLEX MASS IN THE POSTERIOR CUL-DE-SAC WITHOUT A DEFINITE POLE OR HEART VALVE ACTIVI TY. IN LIGHT OF PATIENT'S HISTORY I CANNOT EXCLUDE AN ECTOPIC , EITHER VIABLE OR NONVIABLE.
[2019-03-04 08:10] LABS: Appearance,Urine Cloudy (Clear); Bacteria,Urine Few /hpf; Bilirubin,Urine Negative (Negative); Blood,Urine Moderate (Negative); Color,Urine Light Yellow; Glucose,Urine (UA) Negative (Negative); Ketones,Urine Negative (Negative); Leukocyte Esterase,Urine Small (Negative); Mucus,Urine Rare /hpf; Nitrite,Urine Negative (Negative); PH, Urine 6.5 (5.0-8.0); Protein,Urine Negative (Negative); RBC,Urine 12 /hpf (0-5); Squamous Epithelial Cell,Urine 3 /hpf (0-4); Urobilinogen,Urine <2.0 mg/dL (<2.0)
[2019-03-04] MEDS ORDERED: NALOXONE 0.4 MG/ML 1 ML VIAL IV PRN (10:35)
[2019-03-04] MEDS ORDERED: ONDANSETRON 4 MG/2 ML VIAL IVP PRN (10:35)
[2019-03-04] MEDS ORDERED: HYDROmorphone 0.5 MG/0.5 ML SYRINGE IVP PRN (10:35)
[2019-03-04] MEDS ORDERED: HYDROmorphone 1 MG/ML 1 ML SYRINGE IVP PRN (10:35)
[2019-03-04] MEDS ORDERED: SODIUM CHLORIDE 0.9% 1,000 ML IV SCH (10:45)
--- NOTE | 2019-03-04 10:54 | P.HPOB ---
History of Present Illness H&P Date: 03/04/19 Chief Complaint: Pelvic pain, previously diagnosed ectopic 23-year-old presents complaining of low pelvic pain. A few weeks ago when she was in [place] she went to the emergency room twice there for bleeding and cramping after a positive test. She saw an GEAR HOBBER SET UP OPERATOR there who gave her methotrexate. She had blood drawn 7 days later and that GEAR HOBBER SET UP OPERATOR had said to her that it was okay for her to travel back to [place] but if she needed further labs or another dose of methotrexate she would call her. The patient did not receive any phone calls. Today her beta-hCGs 5000 and there is a 7 cm mass in the posterior cul-de-sac. There is no sign of active bleeding. This is her third trip to the emergency room for this, and she is a rehab methotrexate and failed. We discussed ectopic and its sequelae. We discussed methotrexate versus operative management. I am recommending she have surgery today. We discussed laparoscopy with removal of ectopic, possible salpingectomy, possible oophorectomy, possible laparotomy. Patient expressed understanding and her boyfriend was at bedside through the vocal conversation also understood the plan. Review of Systems All systems: negative Constitutional: Denies chills, Denies fever Eyes: denies blurred vision, denies pain Ears, nose, mouth and throat: Denies headache, Denies sore throat Cardiovascular: Denies chest pain, Denies shortness of breath Respiratory: Denies cough Gastrointestinal: Reports abdominal pain, Denies diarrhea, Denies nausea, Denies vomiting Genitourinary: Reports pelvic pain, Denies dysuria, Denies hematuria Musculoskeletal: Denies myalgias Integumentary: Denies pruritus, Denies rash Neurological: Denies numbness, Denies weakness Psychiatric: Denies anxiety, Denies depression Endocrine: Denies fatigue, Denies weight change Past Medical History Past Medical History: No Reported History Additional Past Medical History / Comment(s): Obstetric history: Her first pregn leif was a miscarriage. Her second was ectopic in the right fallopian tube. This is her third and she was diagnosed with an ectopic which she believes is in the left fallopian tube. History of Any Multi-Drug Resistant Organisms: None Reported Past Surgical History: Cholecystectomy Past Psychological History: No Psychological Hx Reported Smoking Status: Former smoker Past Alcohol Use History: Rare Past Drug Use History: Marijuana - Past Family History Mother History Unknown: Yes Sister(s) Family Medical History: Diabetes Mellitus Medications and Allergies Home Medications Medication Instructions Recorded Confirmed Type HYDROcodone/APAP 5-325MG [[place] 1 - 2 tab PO Q6H PRN 03/04/19 03/04/19 History 5-325] Allergies Allergy/AdvReac Type Severity Reaction Status Date / Time Penicillins Allergy Unknown Verified 03/04/19 07:56 Childhood Exam Osteopathic Statement: *. No significant issues noted on an osteopathic structural exam other than those noted in the History and Physical/Consult. Vital Signs Temp Pulse Resp BP Pulse Ox 03/04/19 09:00 76 16 110/67 99 03/04/19 07:40 81 16 105/68 99 03/04/19 07:20 110/67 03/04/19 07:10 102/69 100 03/04/19 07:00 108/60 100 03/04/19 06:50 108/60 100 03/04/19 06:40 111/78 100 03/04/19 06:30 112/72 98 03/04/19 06:27 99 03/04/19 06:05 98.3 F 89 18 95/64 100 Intake and Output 03/03/19 03/04/19 03/04/19 22:59 06:59 14:59 Other: Weight 66.224 kg Heart: Regular rate and rhythm Lungs: Clear to auscultation bilaterally Abdomen: Soft, tender to deep palpation, extremely tender in the suprapubic area Extremities: Negative Homans sign Results Result Diagrams: 03/04/19 07:06 03/04/19 06:24 Abnormal Lab Results - Last 24 Hours (Table) 03/04/19 03/04/19 03/04/19 Range/Units 06:24 06:24 07:40 APTT 18.2 L (22.0-30.0) sec Glucose 100 H (74-99) mg/dL Urine Appearance Cloudy H (Clear) Urine Blood Moderate H (Negative) Ur Leukocyte Esterase Small H (Negative) Urine RBC 12 H (0-5) /hpf Urine WBC 12 H (0-5) /hpf Urine Bacteria Few H (None) /hpf Urine Mucus Rare H (None) /hpf Assessment and Plan (1) Ectopic Current Visit: Yes Status: Acute Code(s): O00.90 - UNSPECIFIED ECTOPIC WITHOUT INTRAUTERINE SNOMED Code(s): 12936631 Plan: 1. We discussed methotrexate versus operative management. I am recommending she have surgery today. We discussed laparoscopy with removal of ectopic, possible salpingectomy, possible oophorectomy, possible laparotomy. Patient expressed understanding and her boyfriend was at bedside through the vocal conversation also understood the plan.
[2019-03-04] MEDS ORDERED: DEXAMETHASONE SOD PHOSPHATE 10 MG/ML 1 ML VIAL IV ONE (12:18)
[2019-03-04] MEDS ORDERED: ONDANSETRON 4 MG/2 ML VIAL IVP ONE (12:18)
[2019-03-04] MEDS ORDERED: fentaNYL (PF) 50 MCG/ML 2 ML AMP IV PRN (12:18)
[2019-03-04] MEDS ORDERED: LACTATED RINGERS 1,000 ML IV SCH (12:30)
[2019-03-04] MEDS ORDERED: ROCURONIUM BROMIDE 10 MG/ML 10 ML VIAL IV ONE (12:40)
[2019-03-04] MEDS ORDERED: PROPOFOL 10 MG/ML 20 ML VIAL IV ONE (12:40)
[2019-03-04] MEDS ORDERED: LIDOCAINE 1% INJ 10MG/ML (20 ML MDV) ONE (12:40)
[2019-03-04] MEDS ORDERED: NEOSTIGMINE 1 MG/ML 10 ML VIAL ONE (12:40)
[2019-03-04] MEDS ORDERED: SUCCINYLCHOLINE CHLORIDE 100 MG/5 ML SYR IV ONE (12:40)
[2019-03-04] MEDS ORDERED: fentaNYL (PF) 50 MCG/ML 2 ML AMP ONE (12:40)
[2019-03-04] MEDS ORDERED: MIDAZOLAM 2 MG/2 ML VIAL ONE (12:40)
[2019-03-04] MEDS ORDERED: GLYCOPYRROLATE 0.2 MG/ML 2 ML VIAL ONE (12:40)
[2019-03-04] MEDS ORDERED: LACTATED RINGERS 1,000 ML IV ONE ×2 (12:45→13:46)
[2019-03-04] MEDS ORDERED: BUPIVACAINE (PF) 0.25% 30 ML VIAL SQ ONE (13:13)
--- NOTE | 2019-03-04 13:57 | P.OP ---
Date of Procedure: 03/04/19 Preoperative Diagnosis: 1. Ectopic , failed methotrexate Postoperative Diagnosis: 1. Ectopic in the left fallopian tube 2. Hemoperitoneum Procedure(s) Performed: Operative laparoscopy with left salpingectomy and removal of ectopic Anesthesia: LEO Surgeon: Chrissy Nagel Estimated Blood Loss (ml): 50 IV fluids (ml): 800 Urine output (ml): 30 Pathology: other (Left fallopian tube with ectopic) Condition: stable Disposition: PACU Operative Findings: There was blood in the pelvis noted coming from the fimbriated end of the left fallopian tube. Left fallopian tube was edematous and dark. The right fallopian tube is scarred to the ovary and the right pelvic sidewall. Description of Procedure: Patient is taken the operating room where general anesthesia was obtained without difficulty. She is prepped and draped in normal sterile fashion dorsal lithotomy position, legs placed in the Armani stirrups. Bladder was drained of all urine. Loyal speculum was placed in the vagina and the anterior lip the cervix was grasped with single-tooth tenaculum. The uterus sounded to 9 cm and the kroner manipulator was placed. Attention was then turned to the abdomen and gloves were changed. A 10 mm infraumbilical incision was made the scalpel and 10 mm optical trocar was placed under direct visualization. A 5 mm incision was made suprapubically and a 5 mm optical trocar was placed under direct visualization. Survey of the pelvis revealed bright red blood anterior to the uterus and clots posterior to the uterus and the posterior cul-de-sac. The right fallopian tube appeared slightly edematous and suctioned to the right ovary and right pelvic sidewall. The left fallopian tube is edematous, dark, and bleeding from the fimbriated end. A third incision was made in the right lower quadrant a 5 mm optical trocar was placed under direct visualization. The 5 LigaSure was used to cut across the mesosalpinx to free the left fallopian tube. The left fallopian tube was placed into the 10 mm Endo Catch bag and removed through the umbilical port. The pelvis was irrigated, blood and clots were removed. All instruments removed from the pelvis. The infraumbilical incision was closed first with 0 Vicryl and the fascial layer and then 4-0 Vicryl subcuticular fashion. The 5 mm incisions were closed with 4-0 Vicryl subcuticular fashion. Patient tolerated the procedure well, sponge and instrument counts were correct 2. She was taken to recovery in stable condition.
[2019-03-04] MEDS ORDERED: HYDROmorphone 1 MG/ML 1 ML SYRINGE IVP ONE ×2 (14:02→14:07)
[2019-03-04 14:58] VITALS: BMI 27.0
[2019-03-04 15:48] VITALS: RESP 16; TEMP 97.7
[2019-03-04 16:00] VITALS: BP 95/64; PULSE 100
[2019-03-04] MEDS ORDERED: KETOROLAC 30 MG/ML 1 ML VIAL IVP PRN (16:18)
[2019-03-04] MEDS ORDERED: diphenhydrAMINE 50 MG/ML 1 ML VIAL IVP PRN (16:18)
[2019-03-04] MEDS ORDERED: HYDROcodone/APAP 5-325MG 1 EACH TAB PO PRN (16:18)
[2019-03-04] MEDS ORDERED: IBUPROFEN 600 MG TAB PO PRN (16:18)
[2019-03-04] MEDS ORDERED: SIMETHICONE 80 MG CHEWABLE PO PRN (16:18)
[2019-03-04] MEDS ORDERED: SENNOSIDES-DOCUSATE SODIUM 1 EACH TAB PO SCH (21:00)
== END 2019-03-04 18:11 | disposition home or self-care (01) ==
LOC: EC 06:00 → 6PED 10:49
PROVIDERS: ADMIT Obstetrics & Gynecology; ATTEND Obstetrics & Gynecology
DX: O00.102 Left tubal pregnancy without intrauterine pregnancy (principal); K66.1 Hemoperitoneum; Z88.0 Allergy status to penicillin; Z90.49 Acquired absence of other specified parts of digestive tract; Z87.891 Personal history of nicotine dependence; Z87.59 Personal history of other complications of pregnancy, childbirth and the puerperium; Z83.3 Family history of diabetes mellitus
CPT/HCPCS: 59151; 96376; 96361; 96374; 99285; 36415; 86900; 86901; 88305; 80053; 83605; 83690; 85025; 85610; 85730; 86850; 81001; 84702; 87086; 76801; 76817; G0378; J2250; J2710; J2001; J3010; J1170 ×2; J0330; J2704

== ENCOUNTER → 2019-10-05 | Outpatient (CLI) | payer OTHER ==
[~2019-10-05] MED LIST: METHOTREXATE SODIUM (PF) 25 MG/ML 2 ML VIAL IM ONE
[2019-10-05 14:15] VITALS: BP 130/84; PULSE 90; RESP 16; TEMP 98.1
[2019-10-05 15:06] LABS: HCT 42.9 % (34.0-46.0); HGB 14.2 gm/dL (11.4-16.0); MCH 31.2 pg (25.0-35.0); MCHC 33.2 g/dL (31.0-37.0); MCV 94.1 fL (80.0-100.0); Platelet Count 366 k/uL (150-450); RBC 4.56 m/uL (3.80-5.40); RDW 13.2 % (11.5-15.5); WBC 11.6 k/uL (3.8-10.6)
[2019-10-05 15:17] LABS: ALT 27 U/L (4-34); AST 28 U/L (14-36)
== END | disposition home or self-care (01) ==
LOC: PROCWHC3 13:30
PROVIDERS: ATTEND Obstetrics & Gynecology
DX: O00.90 Unspecified ectopic pregnancy without intrauterine pregnancy (principal); Z3A.00 Weeks of gestation of pregnancy not specified
CPT/HCPCS: 84450; 84460; 85027; 36415; 96402; J9260

== ENCOUNTER 2021-01-20 13:45 | Emergency (ER) | payer OTHER ==
[2021-01-20 14:48] VITALS: RESP 18
[2021-01-20] MEDS ORDERED: guaiFENesin-DM 600/30MG 1 EACH TAB.ER.12H PO STA (15:17)
[2021-01-20] MEDS ORDERED: ACETAMINOPHEN TAB 325 MG TAB PO STA (15:17)
[2021-01-20] MEDS ORDERED: IBUPROFEN 600 MG TAB PO STA (15:17)
--- NOTE | 2021-01-20 15:32 | XR ---
EXAMINATION TYPE: XR chest 1V DATE OF EXAM: 01/20/2021 COMPARISON: None INDICATION: Cough sore throat TECHNIQUE: Single frontal view of the chest is obtained. FINDINGS: The heart size is normal. The pulmonary vasculature is normal. The lungs are clear. IMPRESSION: 1. No acute pulmonary process.
--- NOTE | 2021-01-20 15:51 | ED ---
General Adult HPI - General Chief complaint: ENT Stated complaint: Sore throat, body aches Time Seen by Provider: 01/20/21 15:00 Source: patient Mode of arrival: ambulatory Limitations: no limitations - History of Present Illness Initial comments: 25-year-old female patient presents to the emergency department today for evaluation of right ear pain, sore throat, body aches, fever. Patient states symptoms started a couple days ago and have gradually worsened. States that she has been taking DayQuil and Tylenol without relief. States she has been exposed to COVID-19. States she just finished her period denies chance of . Denies any medical problems. States she is having cough denies sputum production or shortness of breath. Denies any chest pain. - Related Data Previous Rx's Medication Instructions Recorded Ibuprofen [Motrin] 600 mg PO Q8HR PRN #30 tab 01/20/21 guaiFENesin-DM 600/30MG [Mucinex 2 each PO Q12HR PRN #20 tab.er.12h 01/20/21 Dm] Allergies Allergy/AdvReac Type Severity Reaction Status Date / Time Penicillins Allergy Unknown Verified 01/20/21 14:48 Childhood Review of Systems ROS Statement: Those systems with pertinent positive or pertinent negative responses have been documented in the HPI. ROS Other: All systems not noted in ROS Statement are negative. Past Medical History Past Medical History: No Reported History Additional Past Medical History / Comment(s): Obstetric history: Her first was a miscarriage. Her second was ectopic in the right fallopian tube. This is her third and she was diagnosed with an ectopic which she believes is in the left fallopian tube. History of Any Multi-Drug Resistant Organisms: None Reported Past Surgical History: Cholecystectomy Additional Past Surgical History / Comment(s): RIGHT ECTOPIC SURG. LEFT SALPINGECTOMY, Past Anesthesia/Blood Transfusion Reactions: No Reported Reaction Past Psychological History: No Psychological Hx Reported Smoking Status: Former smoker Past Alcohol Use History: Rare Past Drug Use History: Marijuana - Past Family History Mother History Unknown: Yes Sister(s) Family Medical History: Diabetes Mellitus General Exam Limitations: no limitations General appearance: alert, in no apparent distress, other (This is a well- developed, well-nourished adult female patient in no acute distress. Vital signs upon presentation temperature 100.4F, pulse 122, respirations 18, blood pressure 125/80, pulse ox 97% on room air.) ENT exam: Present: mucous membranes moist, TM's normal bilaterally. Absent: normal oropharynx (Pharyngeal erythema. Tonsils are symmetric, uvula midline. No exudate.) Respiratory exam: Present: normal lung sounds bilaterally. Absent: respiratory distress, wheezes, rales, rhonchi, stridor Cardiovascular Exam: Present: normal rhythm, tachycardia, normal heart sounds. Absent: systolic murmur, diastolic murmur, rubs, gallop, clicks GI/Abdominal exam: Present: soft, normal bowel sounds. Absent: distended, tenderness, guarding, rebound, rigid Neurological exam: Present: alert, oriented X3, CN II-XII intact Psychiatric exam: Present: normal affect, normal mood Skin exam: Present: warm, dry, intact, normal color. Absent: rash Course Vital Signs 01/20/21 14:44 Temperature 100.4 F H Pulse Rate 122 H Respiratory 18 Rate Blood Pressure 125/80 O2 Sat by Pulse 97 Oximetry Medical Decision Making - Medical Decision Making 25-year-old female patient presents to the emergency department today for evaluation of body aches, sore throat, nasal congestion. Also reporting right ear pain. Chest x-ray was negative. No evidence for otitis media. She did test positive for COVID-19. She does meet criteria for monoclonal antibodies, infusion was discussed with her including risks and benefits. She does agree to receive the medication. Patient had no adverse reaction or discharged home to follow-up with the primary care physician for recheck in 1-2 days. Return parameters were discussed in detail. She verbalizes understanding and agrees with this plan. Case discussed with my attending Dr. Leonardo. - Lab Data Lab Results 01/20/21 Range/Units 15:49 Coronavirus (PCR) Detected A (Not Detectd) - Radiology Data Radiology results: report reviewed, image reviewed Xray of the chest was obtained report was reviewed in its entirety. Impression by Dr. Nova shows no acute pulmonary process. Disposition Clinical Impression: COVID-19 Disposition: HOME SELF-CARE Condition: Good Instructions (If sedation given, give patient instructions): Coronavirus Disease 2019 (COVID-19) Additional Instructions: Take Tylenol Motrin for pain control. Increase fluids. Follow-up with the primary care physician for recheck in 1-2 days. Return for any new, worsening, or concerning symptoms. Prescriptions: Ibuprofen [Motrin] 600 mg PO Q8HR PRN #30 tab PRN Reason: Pain guaiFENesin-DM 600/30MG [Mucinex Dm] 2 each PO Q12HR PRN #20 tab.er.12h PRN Reason: Cough Is patient prescribed a controlled substance at d/c from ED?: No Referrals: None,Stated [Primary Care Provider] - 1-2 days Time of Disposition: 18:50
[2021-01-20] MEDS ORDERED: SODIUM CHLORIDE 0.9% 50 ML IVPB ONE (16:45)
[2021-01-20] MEDS ORDERED: CASIRIVIMAB (REGN10933) (EUA) 600 MG, IMDEVIMAB (REGN10987) (EUA) 600 MG in SODIUM CHLO... IVPB ONE (17:00)
[2021-01-20] MEDS ORDERED: KETOROLAC 15 MG/ML 1 ML VIAL IVP STA (18:17)
[2021-01-20 18:59] VITALS: BP 125/64; PULSE 72; TEMP 98.1
== END 2021-01-20 19:01 | disposition home or self-care (01) ==
LOC: EC 13:45
DX: U07.1 COVID-19 (principal); H92.01 Otalgia, right ear; Z87.891 Personal history of nicotine dependence; Z88.0 Allergy status to penicillin
CPT/HCPCS: 87635; 71045; 99284; 96365; 96375; J1885

== ENCOUNTER 2021-05-16 19:03 | Emergency (ER) | payer OTHER ==
[2021-05-16 21:14] LABS: Appearance,Urine Cloudy (Clear); Bacteria,Urine Rare /hpf; Bilirubin,Urine Negative (Negative); Blood,Urine Trace (Negative); Color,Urine Yellow; Glucose,Urine (UA) Negative (Negative); Ketones,Urine Negative (Negative); Leukocyte Esterase,Urine Negative (Negative); Mucus,Urine Occasional /hpf; Nitrite,Urine Negative (Negative); PH, Urine 5.5 (5.0-8.0); Protein,Urine Negative (Negative); RBC,Urine 2 /hpf (0-5); Specific Gravity,Urine 1.019 (1.001-1.035); Squamous Epithelial Cell,Urine 10 /hpf (0-4); Urobilinogen,Urine <2.0 mg/dL (<2.0); WBC,Urine 2 /hpf (0-5)
[2021-05-16] MEDS ORDERED: ACETAMINOPHEN TAB 500 MG TAB PO STA (21:37)
--- NOTE | 2021-05-16 22:00 | XR ---
EXAMINATION TYPE: XR chest 2V DATE OF EXAM: 05/16/2021 COMPARISON: 01/20/2021 HISTORY: Cough and fever TECHNIQUE: FINDINGS: Heart and mediastinum are normal. Lungs are clear. Diaphragm is normal. Bony thorax is inta ct. IMPRESSION: Normal chest. No change.
[2021-05-17] MEDS ORDERED: SOTROVIMAB (EUA) 500 MG in SODIUM CHLORIDE 0.9% 100 ML IVPB ONE (02:00)
[2021-05-17] MEDS ORDERED: SODIUM CHLORIDE 0.9% 50 ML IVPB ONE (02:00)
[2021-05-17 02:37] VITALS: RESP 18
[2021-05-17] MEDS ORDERED: ONDANSETRON 4 MG/2 ML VIAL IVP STA (03:29)
[2021-05-17] MEDS ORDERED: IBUPROFEN 600 MG TAB PO STA (03:29)
[2021-05-17] MEDS ORDERED: SODIUM CHLORIDE 0.9% 500 ML 500 ML IV ONE (03:29)
--- NOTE | 2021-05-17 03:30 | ED ---
General Adult HPI - General Chief complaint: Fever Stated complaint: YASMEEN,Earache,Body Aches Time Seen by Provider: 05/17/21 00:46 Source: patient Mode of arrival: ambulatory Limitations: no limitations - History of Present Illness Initial comments: 26 year-old female patient presents to the emergency department for evaluation of body aches, fever, cough, and shortness of breath. States she has been nauseated and did have an episode of vomiting last evening. Denies any diarrhea or constipation. States she did have COVID in January. Denies being vaccinated. Denies taking anything for pain or fever. Denies chance of . Denies sputum production with her cough. Denies smoking history. - Related Data Previous Rx's Medication Instructions Recorded Ibuprofen [Motrin] 600 mg PO Q8HR PRN #30 tab 01/20/21 guaiFENesin-DM 600/30MG [Mucinex 2 each PO Q12HR PRN #20 tab.er.12h 01/20/21 Dm] Ibuprofen [Motrin] 600 mg PO Q8HR PRN #30 tab 05/17/21 Ondansetron [Zofran ODT] 4 mg PO Q8HR PRN #10 tab 05/17/21 guaiFENesin-DM 600/30MG [Mucinex 1 each PO Q12HR #10 tab 05/17/21 Dm] Allergies Allergy/AdvReac Type Severity Reaction Status Date / Time Penicillins Allergy Unknown Verified 05/16/21 20:40 Childhood Review of Systems ROS Statement: Those systems with pertinent positive or pertinent negative responses have been documented in the HPI. ROS Other: All systems not noted in ROS Statement are negative. Past Medical History Past Medical History: No Reported History Additional Past Medical History / Comment(s): Obstetric history: Her first was a miscarriage. Her second was ectopic in the right fallopian tube. This is her third and she was diagnosed with an ectopic which she believes is in the left fallopian tube. History of Any Multi-Drug Resistant Organisms: None Reported Past Surgical History: Cholecystectomy Additional Past Surgical History / Comment(s): RIGHT ECTOPIC SURG. LEFT SALPINGECTOMY, Past Anesthesia/Blood Transfusion Reactions: No Reported Reaction Past Psychological History: No Psychological Hx Reported Smoking Status: Former smoker Past Alcohol Use History: Rare Past Drug Use History: Marijuana - Past Family History Mother History Unknown: Yes Sister(s) Family Medical History: Diabetes Mellitus General Exam Limitations: no limitations General appearance: alert, in no apparent distress, other (This is a well- developed, well-nourished adult female in no acute distress.) Eye exam: Present: normal appearance, PERRL, EOMI. Absent: scleral icterus, conjunctival injection, periorbital swelling ENT exam: Present: normal exam, mucous membranes moist, TM's normal bilaterally. Absent: normal oropharynx (Pharyngeal erythema. No tonsillar hypertrophy or exudate. Uvula is midline and tonsils are symmetric.) Neck exam: Present: normal inspection. Absent: tenderness, meningismus, lymphadenopathy Respiratory exam: Present: normal lung sounds bilaterally. Absent: respiratory distress, wheezes, rales, rhonchi, stridor Cardiovascular Exam: Present: normal rhythm, tachycardia, normal heart sounds. Absent: systolic murmur, diastolic murmur, rubs, gallop, clicks GI/Abdominal exam: Present: soft, normal bowel sounds. Absent: distended, tenderness, guarding, rebound, rigid Neurological exam: Present: alert, oriented X3, CN II-XII intact Psychiatric exam: Present: normal affect, normal mood Skin exam: Present: warm, dry, intact, normal color. Absent: rash Course Vital Signs 05/16/21 05/17/21 20:36 02:30 Temperature 102 F H 100.7 F H Pulse Rate 125 H 122 H Respiratory 26 H 18 Rate Blood Pressure 109/81 113/67 O2 Sat by Pulse 96 96 Oximetry EKG Findings - EKG Comments: EKG Findings:: EKG obtained at 2125 shows sinus tachycardia with a ventricular rate of 106, VT interval 124, QRS duration 84, QT 312, QTC 414. No evidence of ST elevation or depression. Medical Decision Making - Medical Decision Making 26-year-old female patient presents to the emergency department today for evaluation of upper respiratory symptoms, fever, nausea. Physical examination revealed soft nontender abdomen. She was febrile upon arrival to 102F. Tachycardia at 125. EKG showed sinus tachycardia. She did test positive for COVID. We did discuss the antibody infusion. Also had a discussion with the pharmacist to determine whether receiving a second antibody infusion was safe. There were no contraindications to receiving the infusion. She tolerated it well. She will be discharged with medication for symptom relief. She is instructed to follow-up with her primary care physician for recheck in 1-2 days. Return parameters were discussed in detail. She verbalizes understanding and agrees with this plan. My attending is Dr. Benson. - Lab Data Lab Results 05/16/21 05/16/21 05/16/21 Range/Units 20:42 20:47 20:47 Urine Color Yellow Urine Appearance Cloudy H (Clear) Urine pH 5.5 (5.0-8.0) Ur Specific [place] 1.019 (1.001-1.035) Urine Protein Negative (Negative) Urine Glucose (UA) Negative (Negative) Urine Ketones Negative (Negative) Urine Blood Trace H (Negative) Urine Nitrite Negative (Negative) Urine Bilirubin Negative (Negative) Urine Urobilinogen <2.0 (<2.0) mg/dL Ur Leukocyte Esterase Negative (Negative) Urine RBC 2 (0-5) /hpf Urine WBC 2 (0-5) /hpf Ur Squamous Epith Cells 10 H (0-4) /hpf Urine Bacteria Rare H (None) /hpf Urine Mucus Occasional H (None) /hpf Urine HCG, Qual Not Detected (Not Detectd) Coronavirus (PCR) Detected A (Not Detectd) - Radiology Data Radiology results: report reviewed, image reviewed Two-view x-ray of the chest is obtained. Report is reviewed in its entirety. Impression by Dr. Reddy shows normal chest. No change. Disposition Clinical Impression: COVID-19 Disposition: HOME SELF-CARE Condition: Good Instructions (If sedation given, give patient instructions): Coronavirus Disease 2019 (COVID-19) Additional Instructions: Tips to help you feel better: -Maintain adequate fluid intake - especially water. -Rest, you are healing your body will require extra sleep. -Eat even if you do not feel like it - broth, jello, toast are fine if you cannot eat full meals. -Take tylenol and motrin alternating (if you have no allergies or have not been instructed to avoid these medications) to help with body aches and fevers. -Obtain over the counter vitamin C, zinc, and vitamin D3. -Take medications as prescribed. Follow-up with your primary care physician for recheck in 1-2 days. Return for any new, worsening, or concerning symptoms. Prescriptions: Ibuprofen [Motrin] 600 mg PO Q8HR PRN #30 tab PRN Reason: Pain guaiFENesin-DM 600/30MG [Mucinex Dm] 1 each PO Q12HR #10 tab Ondansetron [Zofran ODT] 4 mg PO Q8HR PRN #10 tab PRN Reason: Nausea Is patient prescribed a controlled substance at d/c from ED?: No Referrals: None,Stated [Primary Care Provider] - 1-2 days
[2021-05-17 05:44] VITALS: BP 101/69; PULSE 112; TEMP 99.9
== END 2021-05-17 05:05 | disposition home or self-care (01) ==
LOC: EC 19:03
DX: U07.1 COVID-19 (principal); Z88.0 Allergy status to penicillin; Z87.891 Personal history of nicotine dependence
CPT/HCPCS: 93005; 81001; 81025; 87635; 71046; 99285; 96374; J2405; Q0247

== ENCOUNTER 2021-05-18 05:59 | Emergency (ER) | payer OTHER ==
[2021-05-18 06:53] VITALS: TEMP 99
[2021-05-18] MEDS ORDERED: ACETAMINOPHEN TAB 500 MG TAB PO STA (07:26)
--- NOTE | 2021-05-18 07:32 | ED ---
General Adult HPI - General Chief complaint: Upper Respiratory Infection Stated complaint: Fever, Covid+ Time Seen by Provider: 05/18/21 07:00 Source: patient, RN notes reviewed, old records reviewed Mode of arrival: ambulatory Limitations: no limitations - History of Present Illness Initial comments: This is a 26-year-old female who presents emergency Department complaining when she coughs her chest hurts. Patient states she was diagnosed with COVID Wednesday morning. Patient states she received a monoclonal antibodies. Patient states she continues to feel achy and have a sore throat. Patient states she is also having a lot of diarrhea. Patient states she is able to keep fluids down and if she is nauseous she does have Zofran. Patient states she is taking Motrin when necessary for the pain. Patient has not taken any Tylenol. Patient denies any shortness of breath or difficulty breathing it just hurts to take a deep breath. Patient denies any swelling to the legs or calf tenderness. - Related Data Home Medications Medication Instructions Recorded Confirmed Phenyleph/Acetaminophn/Doxylam 1 cap PO Q4H PRN 05/18/21 05/18/21 [Vicks Dayquil-Nyquil Sinex Cap] guaiFENesin-DM 600/30MG [Mucinex 1 - 2 tab PO Q12HR PRN 05/18/21 05/18/21 Dm] Previous Rx's Medication Instructions Recorded Ibuprofen [Motrin] 600 mg PO Q8HR PRN #30 tab 05/17/21 Ondansetron [Zofran ODT] 4 mg PO Q8HR PRN #10 tab 05/17/21 Allergies Allergy/AdvReac Type Severity Reaction Status Date / Time Penicillins Allergy Unknown Verified 05/18/21 08:10 Childhood Review of Systems ROS Statement: Those systems with pertinent positive or pertinent negative responses have been documented in the HPI. ROS Other: All systems not noted in ROS Statement are negative. Past Medical History Past Medical History: No Reported History Additional Past Medical History / Comment(s): Obstetric history: Her first was a miscarriage. Her second was ectopic in the right fallopian tube. This is her third and she was diagnosed with an ectopic which she believes is in the left fallopian tube. History of Any Multi-Drug Resistant Organisms: None Reported Past Surgical History: Cholecystectomy Additional Past Surgical History / Comment(s): RIGHT ECTOPIC SURG. LEFT SALPINGECTOMY, Past Anesthesia/Blood Transfusion Reactions: No Reported Reaction Past Psychological History: No Psychological Hx Reported Smoking Status: Former smoker Past Alcohol Use History: Rare Past Drug Use History: Marijuana - Past Family History Mother History Unknown: Yes Sister(s) Family Medical History: Diabetes Mellitus General Exam - General Exam Comments Initial Comments: GENERAL: Patient is well-developed and well-nourished. Patient is nontoxic and well- hydrated and is in mild distress. ENT: Neck is soft and supple. No significant lymphadenopathy is noted. Oropharynx is clear. Moist mucous membranes. Neck has full range of motion without elic iting any pain. There is no thyroid enlargement and no masses were felt. EYES: The sclera were anicteric and conjunctiva were pink and moist. Extraocular movements were intact and pupils were equal round and reactive to light. Eyelids were unremarkable. PULMONARY: Unlabored respirations. Good breath sounds bilaterally. No audible rales rhonchi or wheezing was noted. CARDIOVASCULAR: There is a regular rate and rhythm without any murmurs gallops or rubs. ABDOMEN: Soft and nontender with normal bowel sounds. SKIN: Skin is clear with no lesions or rashes and otherwise unremarkable. NEUROLOGIC: Patient is alert and oriented x3. Cranial nerves II through XII are grossly intact. Motor and sensory are also intact. Normal speech, volume and content. Symmetrical smile. MUSCULOSKELETAL: Normal extremities with adequate strength and full range of motion. LYMPHATICS: No significant lymphadenopathy is noted PSYCHIATRIC: Normal psychiatric evaluation. Limitations: no limitations Course Vital Signs 05/18/21 06:48 Temperature 99 F Pulse Rate 112 H Respiratory 26 H Rate Blood Pressure 114/80 O2 Sat by Pulse 97 Oximetry Medical Decision Making - Medical Decision Making Patient refused to have an IV or have blood drawn. New. Chest x-ray shows no acute abnormality. Strep was negative. - Lab Data Lab Results 05/18/21 Range/Units 08:14 Group A Strep Rapid Negative (Negative) Disposition Clinical Impression: COVID-19 Disposition: HOME SELF-CARE Condition: Good Instructions (If sedation given, give patient instructions): Coronavirus Disease 2019 (COVID-19) Is patient prescribed a controlled substance at d/c from ED?: No Referrals: Stacey Luna MD [Primary Care Provider] - 1-2 days Time of Disposition: 08:32
--- NOTE | 2021-05-18 08:12 | XR ---
EXAMINATION TYPE: XR chest 2V DATE OF EXAM: 05/18/2021 COMPARISON: 05/16/2021 HISTORY: Cough and fever TECHNIQUE: Frontal and lateral views of the chest are obtained. FINDINGS: There is no focal air space opacity, pleural effusion, or pneumothorax seen. The cardiac silhouette size is within normal limits. The osseous structures are intact. IMPRESSION: No acute cardiopulmonary process.
[2021-05-18 09:52] VITALS: BP 131/72; PULSE 92; RESP 18
== END 2021-05-18 09:52 | disposition home or self-care (01) ==
LOC: EC 05:59
DX: U07.1 COVID-19 (principal); F12.90 Cannabis use, unspecified, uncomplicated; Z87.891 Personal history of nicotine dependence; Z72.89 Other problems related to lifestyle
CPT/HCPCS: 71046; 87081; 87430; 99283

== ENCOUNTER 2022-01-17 16:14 | Emergency (ER) | payer OTHER ==
[2022-01-17 16:18] VITALS: TEMP 98.2
[2022-01-17] MEDS ORDERED: DIPH,PERTUS(ACELL)TETVAC-LF 0.5 ML VIAL IM ONE (16:22)
[2022-01-17] MEDS ORDERED: LIDOCAINE 1% INJ 10MG/ML (5 ML VIAL-PF) SQ ONE (16:22)
[2022-01-17] MEDS ORDERED: HYDROcodone/APAP 10-325MG 1 EACH TAB PO ONE (16:48)
--- NOTE | 2022-01-17 17:11 | ED ---
Wound/Laceration HPI - General Chief Complaint: Wound/Laceration Stated Complaint: mouth injury Time Seen by Provider: 01/17/22 16:19 Source: patient Mode of arrival: ambulatory Limitations: no limitations - History of Present Illness Initial Comments: Patient is a 26-year-old female who presents with laceration. A baseball was thrown at patient's lip which cause laceration of the left upper lip. Patient denies tooth injury. Last tetanus unknown. - Related Data Home Medications Medication Instructions Recorded Confirmed Phenyleph/Acetaminophn/Doxylam 1 cap PO Q4H PRN 05/18/21 05/18/21 [Vicks Dayquil-Nyquil Sinex Cap] guaiFENesin-DM 600/30MG [Mucinex 1 - 2 tab PO Q12HR PRN 05/18/21 05/18/21 Dm] Previous Rx's Medication Instructions Recorded Ibuprofen [Motrin] 600 mg PO Q8HR PRN #30 tab 05/17/21 Ondansetron [Zofran ODT] 4 mg PO Q8HR PRN #10 tab 05/17/21 Ibuprofen [Motrin] 800 mg PO Q8H PRN #21 tab 01/17/22 Allergies Allergy/AdvReac Type Severity Reaction Status Date / Time Penicillins Allergy Unknown Verified 01/17/22 16:18 Childhood Review of Systems ROS Statement: Those systems with pertinent positive or pertinent negative responses have been documented in the HPI. ROS Other: All systems not noted in ROS Statement are negative. Past Medical History Past Medical History: No Reported History Additional Past Medical History / Comment(s): Obstetric history: Her first was a miscarriage. Her second was ectopic in the right fallopian tube. This is her third and she was diagnosed with an ectopic which she believes is in the left fallopian tube. History of Any Multi-Drug Resistant Organisms: None Reported Past Surgical History: Cholecystectomy Additional Past Surgical History / Comment(s): RIGHT ECTOPIC SURG. LEFT SALPINGECTOMY, Past Anesthesia/Blood Transfusion Reactions: No Reported Reaction Past Psychological History: No Psychological Hx Reported Smoking Status: Former smoker Past Alcohol Use History: Rare Past Drug Use History: Marijuana - Past Family History Mother History Unknown: Yes Sister(s) Family Medical History: Diabetes Mellitus General Exam Limitations: no limitations General appearance: alert, in no apparent distress Head exam: Present: atraumatic, normocephalic, normal inspection Eye exam: Present: normal appearance, PERRL, EOMI. Absent: scleral icterus, conjunctival injection, periorbital swelling ENT exam: Present: other (1 cm laceration over left upper lip that just barely crosses [place] border. Laceration does not extend to the inside of the lip. No tooth or gum injury) Respiratory exam: Present: normal lung sounds bilaterally. Absent: respiratory distress, wheezes, rales, rhonchi, stridor Cardiovascular Exam: Present: regular rate, normal rhythm, normal heart sounds. Absent: systolic murmur, diastolic murmur, rubs, gallop, clicks GI/Abdominal exam: Present: soft, normal bowel sounds. Absent: distended, tenderness, guarding, rebound, rigid Neurological exam: Present: alert, oriented X3, CN II-XII intact Psychiatric exam: Present: normal affect, normal mood Skin exam: Present: warm, dry, intact, normal color. Absent: rash Course Vital Signs 01/17/22 01/17/22 16:15 17:33 Temperature 98.2 F Pulse Rate 93 63 Respiratory 18 16 Rate Blood Pressure 119/82 106/74 O2 Sat by Pulse 99 97 Oximetry Procedures - Laceration Laceration #1 Consent Obtained: verbal consent Site: lip (upper) Size (cm): 1 Description: linear Depth: simple, single layer Pre-repair: wound explored, irrigated extensively Type of Sutures: vicryl Size of Sutures: 6-0 Technique: simple, interrupted Patient Tolerated Procedure: well, no complications Medical Decision Making - Medical Decision Making This is a 18-year-old female who presents to the emergency department for lip laceration. Thorough history and examination were performed. Patient is well- appearing. Has full movement of her upper and lower lip. There iss a 1 cm laceration over left upper lip that just barely crosses [place] border. Laceration does not extend to the inside of the lip. No tooth or gum injury. The [place] border was well approximated with vicryl suture per Dr. Curtis. 2 sutures were placed. Wound care discussed in detail. Although the sutures are absorbable I did advise patient to return for possible removal in 5-[address] Curtis is my attending. Disposition Clinical Impression: Laceration Disposition: HOME SELF-CARE Condition: Good Instructions (If sedation given, give patient instructions): Care For Your Stitches (ED), Laceration (ED) Additional Instructions: Take medication as directed. Leave wound uncovered. Keep wound clean and dry. Wash with a mild soap. Follow-up with primary care provider in 1-2 days. Return for suture removal in 5-7 days. Report back to the emergency department if you experience new, concerning, or worsening symptoms. Prescriptions: Ibuprofen [Motrin] 800 mg PO Q8H PRN #21 tab PRN Reason: Pain Is patient prescribed a controlled substance at d/c from ED?: No Referrals: None,Stated [Primary Care Provider] - 1-2 days Time of Disposition: 17:11
[2022-01-17 17:34] VITALS: BP 106/74; PULSE 63; RESP 16
== END 2022-01-17 17:34 | disposition home or self-care (01) ==
LOC: EC 16:14
DX: S01.511A Laceration without foreign body of lip, initial encounter (principal); Z87.891 Personal history of nicotine dependence; Z23 Encounter for immunization; Z88.0 Allergy status to penicillin; X58.XXXA Exposure to other specified factors, initial encounter
CPT/HCPCS: 90715; 99282; 12011; 90471; J2001

== ENCOUNTER 2022-09-01 23:05 | Emergency (ER) | payer BC ==
[2022-09-01 23:11] VITALS: TEMP 97.5
--- NOTE | 2022-09-02 00:51 | US ---
EXAMINATION TYPE: US pelvis complete transvag DATE OF EXAM: 09/02/2022 COMPARISON: US:08/16/22, CT:08/16/22 CLINICAL HISTORY: r/o ectopic. Pt had ectopic pg and had methotrexate shot 08/14/22. Pt states she has been having RLQ pain on and off since. Pt states the pain has worsened the past 3 days. . Hx of e ctopic in left ovary with surgery to remove in 2020. Pt states only her left fallopian tube was remov ed TECHNIQUE: . Transabdominal sonographic images of the pelvis were acquired. Transvaginal sonographi c images were medically necessary to better assess the following anatomy: Uterus and ovaries Date of LMP: Unknown EXAM MEASUREMENTS: Uterus: 7.8 x 4.9 x 3.7 cm Endometrial Stripe: 0.6 cm Right Ovary: 5.4 x 5.0 x 3.8 cm Left Ovary: Not seen 1. Uterus: Anteverted wnl 2. Endometrium: wnl 3. Right Ovary: 2 cystic areas visualized. One is completely cystic measuring 3.2 x 4.1 x 3.2cm. The other is complex measuring 2.3 x 3.3 x 2.1cm 4. Left Ovary: Not seen Spectral, color and waveform doppler imaging shows good arterial and venous flow within the ovaries ; there is no evidence for ovarian torsion. 5. Bilateral Adnexa: Free fluid seen adjacent to right ovary 6. Posterior cul-de-sac: Free fluid seen IMPRESSION: There is free fluid in the pelvis. There is no evidence of ovarian torsion. Left ovary not seen. The right ovary shows a complex 3 x 2 cm cyst. This could be residual of ectopic gestation. There is simp le 4 x 3.2 cm right ovarian cyst. No definite evidence of an ectopic gestational sac.
[2022-09-02] MEDS ORDERED: HYDROmorphone 0.5 MG/0.5 ML SYRINGE IVP STA ×2 (00:53→03:38)
[2022-09-02] MEDS ORDERED: SODIUM CHLORIDE 0.9% 1,000 ML IV ONE (00:53)
[2022-09-02] MEDS ORDERED: ONDANSETRON 4 MG/2 ML VIAL IVP STA (00:53)
[2022-09-02 01:03] LABS: Basophils % (A) 0 %; Eosinophils # (A) 0.2 k/uL (0-0.7); Eosinophils % (A) 1 %; HCT 37.1 % (34.0-46.0); HGB 12.5 gm/dL (11.4-16.0); Lymphocytes # (A) 2.4 k/uL (1.0-4.8); Lymphocytes % (A) 20 %; MCH 29.8 pg (25.0-35.0); MCHC 33.6 g/dL (31.0-37.0); MCV 88.7 fL (80.0-100.0); Mean Platelet Volume 6.5; Monocytes # (A) 0.7 k/uL (0-1.0); Monocytes % (A) 5 %; Neutrophils # (A) 8.9 k/uL (1.3-7.7); Neutrophils % (A) 72 %; Platelet Count 405 k/uL (150-450); RBC 4.19 m/uL (3.80-5.40); RDW 13.4 % (11.5-15.5); WBC 12.3 k/uL (3.8-10.6)
[2022-09-02 01:19] LABS: ALT 31 U/L (4-34); AST 25 U/L (14-36); African American GFR (CKD) >90 (>60 ml/min/1.73 sqM); Albumin 4.4 g/dL (3.5-5.0); Alkaline Phosphatase 89 U/L (38-126); Anion Gap 10 mmol/L; Blood Urea Nitrogen 11 mg/dL (7-17); Calcium 9.4 mg/dL (8.4-10.2); Carbon Dioxide 23 mmol/L (22-30); Chloride 104 mmol/L (98-107); Glucose 115 mg/dL (74-99); Non-African American GFR(CKD) >90 (>60 ml/min/1.73 sqM); Sodium 137 mmol/L (137-145); Total Bilirubin 0.3 mg/dL (0.2-1.3); Total Protein 7.5 g/dL (6.3-8.2)
[2022-09-02 01:20] LABS: Potassium 4.2 mmol/L (3.5-5.1)
--- NOTE | 2022-09-02 01:24 | ED ---
Abdominal Pain HPI - General Chief Complaint: Abdominal Pain Stated Complaint: Right ABD Pain, PO ectopic Time Seen by Provider: 09/02/22 00:35 Source: patient, RN notes reviewed Mode of arrival: ambulatory Limitations: no limitations - History of Present Illness Initial Comments: 27-year-old female presents emergency Department with chief complaint of right- sided abdominal pain. Patient states that she has a known ectopic states that she received methotrexate on August 15. Patient states that tonight she started developing worsening pain seems to radiate to her flank and states that she's had some dysuria. Patient states she continues to have some vaginal bleeding. Patient denies fevers or chills she states she does have a follow-up appointment and he continued to monitor her hCG which has been declining. Patient had a prior ectopic with left ovary removal. - Related Data Previous Rx's Medication Instructions Recorded HYDROcodone/APAP 7.5-325MG [[place] 1 tab PO Q4H PRN 3 Days #18 tab 08/17/22 7.5-325] Allergies Allergy/AdvReac Type Severity Reaction Status Date / Time Penicillins Allergy Unknown Verified 09/01/22 23:11 Childhood Review of Systems ROS Statement: Those systems with pertinent positive or pertinent negative responses have been documented in the HPI. ROS Other: All systems not noted in ROS Statement are negative. Past Medical History Past Medical History: No Reported History Additional Past Medical History / Comment(s): Obstetric history: Her first was a miscarriage. Her second was ectopic in the right fallopian tube. This is her third and she was diagnosed with an ectopic which she believes is in the left fallopian tube. History of Any Multi-Drug Resistant Organisms: None Reported Past Surgical History: Cholecystectomy Additional Past Surgical History / Comment(s): RIGHT ECTOPIC SURG. LEFT SALPINGECTOMY, Past Anesthesia/Blood Transfusion Reactions: No Reported Reaction Past Psychological History: No Psychological Hx Reported Smoking Status: Former smoker Past Alcohol Use History: None Reported Past Drug Use History: None Reported - Past Family History Mother History Unknown: Yes Sister(s) Family Medical History: Diabetes Mellitus General Exam Limitations: no limitations General appearance: alert, in no apparent distress Head exam: Present: atraumatic, normocephalic, normal inspection Eye exam: Present: normal appearance, PERRL, EOMI. Absent: scleral icterus, conjunctival injection, periorbital swelling ENT exam: Present: normal exam, normal oropharynx, mucous membranes moist Neck exam: Present: normal inspection, full ROM. Absent: tenderness, mening ismus, lymphadenopathy Respiratory exam: Present: normal lung sounds bilaterally. Absent: respiratory distress, wheezes, rales, rhonchi, stridor Cardiovascular Exam: Present: regular rate, normal rhythm, normal heart sounds. Absent: systolic murmur, diastolic murmur, rubs, gallop, clicks GI/Abdominal exam: Present: soft, tenderness, normal bowel sounds. Absent: distended, guarding, rebound, rigid Back exam: Present: CVA tenderness (R) Course Vital Signs 09/01/22 09/02/22 23:07 01:10 Temperature 97.5 F L Pulse Rate 94 Respiratory 16 18 Rate Blood Pressure 138/87 120/72 O2 Sat by Pulse 100 Oximetry Medical Decision Making - Medical Decision Making Was pt. sent in by a medical professional or institution (, PA, MANAGER STYLIST, urgent care, hospital, or fdc...) When possible be specific @ -No Did you speak to anyone other than the patient for history (EMS, parent, family, police, friend...)? What history was obtained from this source @ -No Did you review nursing and triage notes (agree or disagree)? Why? @ -I reviewed and agree with nursing and triage notes Were old charts reviewed (outside hosp., previous admission, EMS record, old EKG , old radiological studies, urgent care reports/EKG's, fdc records)? Report findings @ - review multiple prior hCG levels, hemoglobin, ultrasound. Differential Diagnosis (chest pain, altered mental status, abdominal pain women, abdominal pain men, vaginal bleeding, weakness, fever, dyspnea, syncope, headache, dizziness, GI bleed, back pain, seizure, CVA, palpatations, mental health, musculoskeletal)? @ -Differential Abdominal Pain Women: Appendicitis, Cholecystitis, diverticulosis, ischemic bowel, pancreatitis, hepatitis, UTI, gastroenteritis, AAA, incarcerated hernia, bowel obstruction, constipation, inflammatory bowel, hepatitis, peptic ulcer disease, splenic infarction, perforated viscus, vulvitis, ovarian torsion, PID, kidney stone, placenta abruption, this is not meant to be an all-inclusive list EKG interpreted by me (3pts min.). @ -None X-rays interpreted by me (1pt min.). @ -None done CT interpreted by me (1pt min.). @ -None done U/S interpreted by me (1pt. min.). @ -Ultrasound shows complex cystic area on the right along with simple cyst What testing was considered but not performed or refused? (CT, X-rays, U/S, labs)? Why? @ -None What meds were considered but not given or refused? Why? @ -None Did you discuss the management of the patient with other professionals (professionals i.e. , PA, MANAGER STYLIST, lab, RT, psych nurse, manager social responsibility, compliance attorney, teacher, mechanical engineering officer, sample case porter)? Give summary @ -Dr. Nagel patient SENIOR TRIAL ATTORNEY who was updated on patient's current vitals, laboratory studies, ultrasound findings showing complex cystic area along with simple cystic area on the right ovary. She felt that this may be causing some of her discomfort but did not feel that this was a rupture ectopic. She will follow patient in the morning patient states she feels comfortable with this plan pain is controlled at this time. Was smoking cessation discussed for >3mins.? @ -No Was critical care preformed (if so, how long)? @ -No Were there social determinants of health that impacted care today? How? (Homelessness, low income, unemployed, alcoholism, drug addiction, transportation, low edu. Level, literacy, decrease access to med. care, correction, rehab)? @ -No Was there de-escalation of care discussed even if they declined (Discuss DNR or withdrawal of care, Hospice)? DNR status @ -No What co-morbidities impacted this encounter? (DM, HTN, Smoking, COPD, CAD, Cancer, CVA, ARF, Chemo, Hep., AIDS, mental health diagnosis, sleep apnea, morbid obesity)? @ - ectopic Was patient admitted / discharged? Hospital course, mention meds given and route, prescriptions, significant lab abnormalities, going to OR and other pertinent info. @ -Discharged after discussion with patient SENIOR TRIAL ATTORNEY regarding ultrasound and lab oratory findings. She'll follow-up in the morning for recheck strict return parameters were discussed. Undiagnosed new problem with uncertain prognosis? @ -No Drug Therapy requiring intensive monitoring for toxicity (Heparin, Nitro, Insulin, Cardizem)? @ -No Were any procedures done? @ -No Diagnosis/symptom? @ -Ectopic Acute, or Chronic, or Acute on Chronic? @ -Acute Uncomplicated (without systemic symptoms) or Complicated (systemic symptoms)? @ -Uncomplicated] Side effects of treatment? @ -No Exacerbation, Progression, or Severe Exacerbation? @ -No Poses a threat to life or bodily function? How? (Chest pain, USA, OR, pneumonia, PE, COPD, DKA, ARF, appy, cholecystitis, CVA, Diverticulitis, Homicidal, Suicidal, threat to staff... and all critical care pts) @ -No - Lab Data Result diagrams: 09/02/22 00:56 09/02/22 00:56 Lab Results 09/02/22 09/02/22 09/02/22 Range/Units 00:56 00:56 01:49 WBC 12.3 H (3.8-10.6) k/uL RBC 4.19 (3.80-5.40) m/uL Hgb 12.5 (11.4-16.0) gm/dL Hct 37.1 (34.0-46.0) % MCV 88.7 (80.0-100.0) fL MCH 29.8 (25.0-35.0) pg MCHC 33.6 (31.0-37.0) g/dL RDW 13.4 (11.5-15.5) % Plt Count 405 (150-450) k/uL MPV 6.5 Neutrophils % 72 % Lymphocytes % 20 % Monocytes % 5 % Eosinophils % 1 % Basophils % 0 % Neutrophils # 8.9 H (1.3-7.7) k/uL Lymphocytes # 2.4 (1.0-4.8) k/uL Monocytes # 0.7 (0-1.0) k/uL Eosinophils # 0.2 (0-0.7) k/uL Basophils # 0.0 (0-0.2) k/uL Sodium 137 (137-145) mmol/L Potassium 4.2 (3.5-5.1) mmol/L Chloride 104 (98-107) mmol/L Carbon Dioxide 23 (22-30) mmol/L Anion Gap 10 mmol/L BUN 11 (7-17) mg/dL Creatinine 0.84 (0.52-1.04) mg/dL Est GFR (CKD-EPI)AfAm >90 (>60 ml/min/1.73 sqM) Est GFR (CKD-EPI)NonAf >90 (>60 ml/min/1.73 sqM) Glucose 115 H (74-99) mg/dL Calcium 9.4 (8.4-10.2) mg/dL Total Bilirubin 0.3 (0.2-1.3) mg/dL AST 25 (14-36) U/L ALT 31 (4-34) U/L Alkaline Phosphatase 89 (38-126) U/L Total Protein 7.5 (6.3-8.2) g/dL Albumin 4.4 (3.5-5.0) g/dL HCG, Qual Detected HCG, Quant mIU/mL Urine Color Light Yellow Urine Appearance Cloudy H (Clear) Urine pH 6.5 (5.0-8.0) Ur Specific [place] 1.013 (1.001-1.035) Urine Protein Negative (Negative) Urine Glucose (UA) Negative (Negative) Urine Ketones Negative (Negative) Urine Blood Negative (Negative) Urine Nitrite Negative (Negative) Urine Bilirubin Negative (Negative) Urine Urobilinogen <2.0 (<2.0) mg/dL Ur Leukocyte Esterase Trace H (Negative) Urine RBC 1 (0-5) /hpf Urine WBC <1 (0-5) /hpf Ur Squamous Epith Cells 4 (0-4) /hpf Urine Bacteria Rare H (None) /hpf Urine Mucus Rare H (None) /hpf 09/02/22 Range/Units 01:49 WBC (3.8-10.6) k/uL RBC (3.80-5.40) m/uL Hgb (11.4-16.0) gm/dL Hct (34.0-46.0) % MCV (80.0-100.0) fL MCH (25.0-35.0) pg MCHC (31.0-37.0) g/dL RDW (11.5-15.5) % Plt Count (150-450) k/uL MPV Neutrophils % % Lymphocytes % % Monocytes % % Eosinophils % % Basophils % % Neutrophils # (1.3-7.7) k/uL Lymphocytes # (1.0-4.8) k/uL Monocytes # (0-1.0) k/uL Eosinophils # (0-0.7) k/uL Basophils # (0-0.2) k/uL Sodium (137-145) mmol/L Potassium (3.5-5.1) mmol/L Chloride (98-107) mmol/L Carbon Dioxide (22-30) mmol/L Anion Gap mmol/L BUN (7-17) mg/dL Creatinine (0.52-1.04) mg/dL Est GFR (CKD-EPI)AfAm (>60 ml/min/1.73 sqM) Est GFR (CKD-EPI)NonAf (>60 ml/min/1.73 sqM) Glucose (74-99) mg/dL Calcium (8.4-10.2) mg/dL Total Bilirubin (0.2-1.3) mg/dL AST (14-36) U/L ALT (4-34) U/L Alkaline Phosphatase (38-126) U/L Total Protein (6.3-8.2) g/dL Albumin (3.5-5.0) g/dL HCG, Qual HCG, Quant 36.6 mIU/mL Urine Color Urine Appearance (Clear) Urine pH (5.0-8.0) Ur Specific [place] (1.001-1.035) Urine Protein (Negative) Urine Glucose (UA) (Negative) Urine Ketones (Negative) Urine Blood (Negative) Urine Nitrite (Negative) Urine Bilirubin (Negative) Urine Urobilinogen (<2.0) mg/dL Ur Leukocyte Esterase (Negative) Urine RBC (0-5) /hpf Urine WBC (0-5) /hpf Ur Squamous Epith Cells (0-4) /hpf Urine Bacteria (None) /hpf Urine Mucus (None) /hpf Disposition Clinical Impression: Ectopic , Abdominal pain, Ovarian cyst Disposition: HOME SELF-CARE Condition: Stable Additional Instructions: Please return to the Emergency Department if symptoms worsen or any other concerns. Is patient prescribed a controlled substance at d/c from ED?: No Referrals: None,Stated [Primary Care Provider] - 1-2 days Chrissy Nagel DO [Doctor of Osteopathic Medicine] - 1-2 days Time of Disposition: 03:43
[2022-09-02 01:30] LABS: HCG,Qualitative Serum Detected
[2022-09-02 02:04] LABS: Appearance,Urine Cloudy (Clear); Bacteria,Urine Rare /hpf; Bilirubin,Urine Negative (Negative); Blood,Urine Negative (Negative); Color,Urine Light Yellow; Glucose,Urine (UA) Negative (Negative); Ketones,Urine Negative (Negative); Leukocyte Esterase,Urine Trace (Negative); Mucus,Urine Rare /hpf; Nitrite,Urine Negative (Negative); PH, Urine 6.5 (5.0-8.0); Protein,Urine Negative (Negative); RBC,Urine 1 /hpf (0-5); Specific Gravity,Urine 1.013 (1.001-1.035); Squamous Epithelial Cell,Urine 4 /hpf (0-4); Urobilinogen,Urine <2.0 mg/dL (<2.0); WBC,Urine <1 /hpf (0-5)
[2022-09-02] MEDS ORDERED: ACET/COD 300 MG/30 MG STARTER PACK 6 TAB BTL PO STA (03:43)
[2022-09-02 04:07] VITALS: BP 98/63; PULSE 76; RESP 16
== END 2022-09-02 04:09 | disposition home or self-care (01) ==
LOC: EC 23:05
DX: O00.90 Unspecified ectopic pregnancy without intrauterine pregnancy (principal); N83.291 Other ovarian cyst, right side; Z88.0 Allergy status to penicillin; Z90.49 Acquired absence of other specified parts of digestive tract; Z87.891 Personal history of nicotine dependence
CPT/HCPCS: 99285 ×2; 96374; 96375; 96376; 96361; 36415; 80053; 85025; 81001; 84703; 84702; 93976; 76856; 76830; J2405; J1170; 93975

== ENCOUNTER 2024-06-26 12:22 | Outpatient (CLI) | payer BC ==
[2024-06-26 13:27] VITALS: BP 128/77; PULSE 98; RESP 16; TEMP 96.8
== END 2024-06-26 13:23 | disposition home or self-care (01) ==
LOC: FBPOP 12:22
PROVIDERS: ATTEND Obstetrics & Gynecology
DX: Z53.9 Procedure and treatment not carried out, unspecified reason (principal)
CPT/HCPCS: 59025; 99213

== ENCOUNTER 2024-07-29 16:11 | Inpatient (IN) | payer BC ==
[2024-07-29] MEDS ORDERED: miSOPROStoL 200 MCG TAB RECTAL PRN (16:34)
[2024-07-29] MEDS ORDERED: LIDOCAINE 0.5% (PF) 5 MG/ML (50 ML SDV) SQ PRN (16:34)
[2024-07-29] MEDS ORDERED: OXYTOCIN 10 UNIT/ML 1 ML VIAL IM PRN (16:34)
[2024-07-29] MEDS ORDERED: TERBUTALINE 1 MG/ML VIAL SQ PRN (16:34)
[2024-07-29] MEDS ORDERED: TRANEXAMIC 1,000 MG/100ML-NACL 1,000 MG in EMPTY BAG 1 BAG IV PRN (16:34)
[2024-07-29] MEDS ORDERED: miSOPROStoL 200 MCG TAB PO PRN (16:34)
[2024-07-29] MEDS ORDERED: CARBOPROST TROMETHAMINE 250 MCG/ML 1 ML AMP IM PRN (16:34)
[2024-07-29] MEDS ORDERED: METHYLERGONOVINE 0.2 MG/ML 1 ML AMP IM PRN (16:34)
[2024-07-29] MEDS: LACTATED RINGERS 1,000 ML IV SCH (17:16)
[2024-07-29] MEDS: AMPICILLIN 2,000 MG in SODIUM CHLORIDE 0.9% 100 ML IVPB STA (17:25)
[2024-07-29 17:30] LABS: Basophils % (A) 0 %; Eosinophils # (A) 0.2 k/uL (0-0.7); Eosinophils % (A) 2 %; HCT 35.6 % (34.0-46.0); HGB 12.1 gm/dL (11.4-16.0); Lymphocytes # (A) 2.4 k/uL (1.0-4.8); Lymphocytes % (A) 24 %; MCHC 34.1 g/dL (31.0-37.0); MCV 88.2 fL (80.0-100.0); Mean Platelet Volume 7.2; Monocytes # (A) 0.5 k/uL (0-1.0); Monocytes % (A) 6 %; Neutrophils # (A) 6.5 k/uL (1.3-7.7); Neutrophils % (A) 66 %; Platelet Count 365 k/uL (150-450); RBC 4.04 m/uL (3.80-5.40); RDW 15.2 % (11.5-15.5); WBC 9.9 k/uL (3.8-10.6)
[2024-07-29] MEDS: NALBUPHINE 10 MG/ML (10 ML MDV) IV PRN (18:19)
[2024-07-29] MEDS: OXYTOCIN 30 UNITS/500 ML NS 30 UNIT in SALINE 1 500ML.BAG IV SCH (18:25)
[2024-07-29] MEDS ORDERED: fentaNYL (PF) 50 MCG/ML 5 ML AMP ONE (19:54)
[2024-07-29] MEDS ORDERED: ROPIVACAINE 5 MG/ML 30 ML VIAL ONE (19:54)
[2024-07-29] MEDS ORDERED: SODIUM CHLORIDE 0.9% 250 ML BAG ONE (19:54)
--- NOTE | 2024-07-29 20:31 | P.HPOB ---
History of Present Illness H&P Date: 07/29/24 Chief Complaint: SROM 29 year old presents at 35 weeks 1 day with spontaneous rupture of membranes around 1600. Her cervix is 1/70/-2 and she is ivelisse irregularly. heart tones 135 with moderate variability and reactive. Review of Systems All systems: negative Constitutional: Denies chills, Denies fever Eyes: denies blurred vision, denies pain Ears, nose, mouth and throat: Denies headache, Denies sore throat Cardiovascular: Denies chest pain, Denies shortness of breath Respiratory: Denies cough Gastrointestinal: Denies abdominal pain, Denies diarrhea, Denies nausea, Denies vomiting Genitourinary: Denies dysuria, Denies hematuria Musculoskeletal: Denies myalgias Integumentary: Denies pruritus, Denies rash Neurological: Denies numbness, Denies weakness Psychiatric: Denies anxiety, Denies depression Endocrine: Denies fatigue, Denies weight change Past Medical History Past Medical History: No Reported History Additional Past Medical History / Comment(s): Obstetric history: She has had a few ectopic pregnancies as well as miscarriage. This is IVF and she has had care with me since the first trimester. History of Any Multi-Drug Resistant Organisms: None Reported Past Surgical History: Cholecystectomy Additional Past Surgical History / Comment(s): RIGHT ECTOPIC SURG. LEFT SALPINGECTOMY, Past Anesthesia/Blood Transfusion Reactions: No Reported Reaction Past Psychological History: No Psychological Hx Reported Smoking Status: Never smoker Past Alcohol Use History: None Reported Past Drug Use History: None Reported - Past Family History Mother History Unknown: Yes Sister(s) Family Medical History: Diabetes Mellitus Medications and Allergies Home Medications Medication Instructions Recorded Confirmed Type Omeprazole [PriLOSEC] 20 mg PO AC-BRKFST #14 cap 03/06/23 07/29/24 Rx Aspirin [Children's Aspirin] 1 tab PO ONCE 06/26/24 07/29/24 History Vit No.179/Iron/Folic 1 tab PO ONCE 06/26/24 07/29/24 History [ Tablet] Allergies Allergy/AdvReac Type Severity Reaction Status Date / Time No Known Allergies Allergy Verified 07/29/24 16:21 Exam Osteopathic Statement: *. No significant issues noted on an osteopathic structural exam other than those noted in the History and Physical/Consult. Vital Signs Temp Pulse Resp BP Pulse Ox 07/29/24 16:38 98.2 F 107 H 18 145/82 97 07/29/24 16:34 98.5 F 120 H 18 132/87 97 Intake and Output 07/29/24 07/29/24 07/29/24 06:59 14:59 22:59 Other: Weight 94.347 kg Heart: Regular rate and rhythm Lungs: Clear to auscultation bilaterally Abdomen: Soft, nontender Extremities: Negative Homans sign Results Result Diagrams: 07/29/24 17:05 Assessment and Plan (1) 35 weeks gestation of Current Visit: Yes Status: Acute Code(s): Z3A.35 - 35 WEEKS GESTATION OF SNOMED Code(s): 28666907 (2) SROM (spontaneous rupture of membranes) Current Visit: Yes Status: Acute Code(s): BLY9563 - SNOMED Code(s): 757462796 Plan: 1. admit to [facility] 2. antibiotics for GBS unknown 3. pitocin augmentation if necessary
[2024-07-29] MEDS: AMPICILLIN 1,000 MG in SODIUM CHLORIDE 0.9% 50 ML IVPB SCH (20:38)
[2024-07-29] MEDS ORDERED: OXYTOCIN 30 UNITS/500 ML NS 30 UNIT in SALINE 1 500ML.BAG IV SCH (23:45)
[2024-07-29] MEDS ORDERED: BENZOCAINE/MENTHOL SPRAY 1 GM/SPRAY AEROSOL TOPICAL PRN (23:59)
[2024-07-29] MEDS ORDERED: LANOLIN CREAM 1 GM TUBE TOPICAL PRN (23:59)
[2024-07-29] MEDS ORDERED: SIMETHICONE 80 MG CHEWABLE PO PRN (23:59)
[2024-07-29] MEDS ORDERED: diphenhydrAMINE 50 MG CAP PO PRN (23:59)
[2024-07-29] MEDS ORDERED: ZOLPIDEM 5 MG TAB PO PRN (23:59)
[2024-07-29] MEDS ORDERED: diphenhydrAMINE 50 MG/ML 1 ML VIAL IVP PRN ×2 (23:59)
[2024-07-29] MEDS ORDERED: diphenhydrAMINE 25 MG CAP PO PRN (23:59)
--- NOTE | 2024-07-29 23:59 | P.PROBDLV ---
Vaginal Delivery Note - . Vaginal Delivery Note: Date of Service: 07/29/2024 29 year old presents at 35 weeks 1 day with spontaneous rupture of membranes around 1600. Her cervix is 1/70/-2 and she is ivelisse irregularly. heart tones 135 with moderate variability and reactive. Soon after she arrived she was 2 cm and good did get an epidural. When she laid down from the epidural her cervix was 9 cm dilated. Her cervix was completely dilated by 20- 43. She pushed, alert a viable female infant over intact perineum under epidural anesthesia 2348. Head delivered OA, anterior shoulder delivered gentle downward guidance followed by posterior shoulder rest of body. Nose and mouth bulb suction, clear clamped and cut, infant placed on mother's abdomen. Apgars 8, 9, weight 5 pounds 5.9 ounces. Placenta delivered spontaneously, intact with three-vessel cord at 2351. Vagina, cervix, perineum were inspected. First- degree midline laceration was repaired with a [id number] 3-0 Vicryl. Estimated blood loss 100 mL. Mother and baby in stable condition.
[2024-07-30] MEDS: ACETAMINOPHEN TAB 500 MG TAB PO SCH (01:17)
[2024-07-30] MEDS: IBUPROFEN 800 MG TAB PO SCH (01:25)
[2024-07-30 07:28] LABS: Basophils % (A) 0 %; Eosinophils # (A) 0.1 k/uL (0-0.7); Eosinophils % (A) 1 %; HCT 32.3 % (34.0-46.0); Lymphocytes # (A) 2.3 k/uL (1.0-4.8); Lymphocytes % (A) 15 %; MCH 30.6 pg (25.0-35.0); MCHC 33.9 g/dL (31.0-37.0); MCV 90.2 fL (80.0-100.0); Mean Platelet Volume 6.9; Monocytes # (A) 0.7 k/uL (0-1.0); Monocytes % (A) 5 %; Neutrophils # (A) 11.6 k/uL (1.3-7.7); Neutrophils % (A) 77 %; Platelet Count 316 k/uL (150-450); RBC 3.59 m/uL (3.80-5.40); RDW 14.8 % (11.5-15.5)
[2024-07-30] MEDS: SENNOSIDES-DOCUSATE SODIUM 1 EACH TAB PO SCH (09:54)
--- NOTE | 2024-07-30 13:12 | P.PNOBGVD ---
Subjective - Subjective Principal diagnosis: Status postnormal vaginal delivery day #1 Interval history: Patient seen and examined. Denies nausea, vomiting, chest pain, shortness of breath and calf pain. Patient reports: Reports appetite normal, Reports voiding normally, Reports pain well controlled, Reports ambulating normally [place]: doing well, in NICU Objective - Latest Vital Signs Latest vital signs: Vital Signs Temp Pulse Resp BP Pulse Ox 07/30/24 08:00 97.7 F 112 H 18 107/70 97 07/30/24 04:00 115 H 16 120/72 96 07/30/24 02:04 107 H 16 134/87 98 07/30/24 01:49 96 16 113/70 98 07/30/24 01:34 112 H 16 116/65 99 07/30/24 01:19 98 16 122/73 98 07/30/24 01:04 103 H 16 119/70 97 07/30/24 00:49 101 H 16 121/72 96 07/30/24 00:34 105 H 16 118/67 97 07/30/24 00:19 106 H 16 114/62 97 07/30/24 00:04 98.9 F 115 H 16 120/67 97 07/29/24 16:38 98.2 F 107 H 18 145/82 97 07/29/24 16:34 98.5 F 120 H 18 132/87 97 Intake and Output 07/29/24 07/30/24 07/30/24 22:59 06:59 14:59 Intake Total 172.867 Output Total 150 667 Balance -150 -494.133 Intake: Intake, IV Titration 172.867 Amount Oxytocin 30 Units/500 ml 172.867 Ns 30 unit In Saline 1 500ml.bag @ Per Protocol IV .Q0M [facility] Rx#:[id number] Output: Urine 150 100 Output, Quantitative 567 Blood Loss Other: # Voids 1 1 Weight 94.347 kg - Exam Lungs: bilateral: normal Chest: Normal S1, Normal S2 Extremities: Present: normal Abdomen: Present: normal appearance, soft Uterus: Present: normal, firm - Labs Labs: Abnormal Lab Results - Last 24 Hours (Table) 07/30/24 Range/Units 07:09 WBC 15.0 H (3.8-10.6) k/uL RBC 3.59 L (3.80-5.40) m/uL Hgb 11.0 L (11.4-16.0) gm/dL Hct 32.3 L (34.0-46.0) % Neutrophils # 11.6 H (1.3-7.7) k/uL Assessment and Plan (1) 35 weeks gestation of Current Visit: Yes Status: Resolved Code(s): Z3A.35 - 35 WEEKS GESTATION OF SNOMED Code(s): 32821837 (2) SROM (spontaneous rupture of membranes) Current Visit: Yes Status: Resolved Code(s): APJ3110 - SNOMED Code(s): 324910970 (3) Status post normal vaginal delivery Current Visit: Yes Status: Acute Code(s): WKR4723 - SNOMED Code(s): 847442619 Plan: 1. Continue care
[2024-07-31 00:08] VITALS: RESP 16
--- NOTE | 2024-07-31 10:07 | P.DS ---
Providers Date of admission: 07/29/24 16:29 Expected date of discharge: 07/31/24 Attending physician: Chrissy Nagel Primary care physician: Stated None - Discharge Diagnosis(es) (1) 35 weeks gestation of Current Visit: Yes Status: Resolved (2) SROM (spontaneous rupture of membranes) Current Visit: Yes Status: Resolved (3) Status post normal vaginal delivery Current Visit: Yes Status: Acute Hospital Course: 29-year-old G6, P1 now presented at 35 weeks and 1 day with spontaneous rupture of membranes. She underwent a normal vaginal delivery with an epidural. course has been uneventful. She denies nausea, vomiting, chest pain, shortness of breath or calf pain. Patient will be discharged home day #2 in stable condition to follow-up with me in 6 weeks. Plan - Discharge Summary New Discharge Prescriptions: No Action Omeprazole [PriLOSEC] 20 mg PO AC-BRKFST #14 cap Vit No.179/Iron/Folic [ Tablet] 1 tab PO ONCE Aspirin [Children's Aspirin] 1 tab PO ONCE Discharge Medication List Omeprazole [PriLOSEC] 20 mg PO AC-BRKFST #14 cap 03/06/23 [Rx] Aspirin [Children's Aspirin] 1 tab PO ONCE 06/26/24 [History] Vit No.179/Iron/Folic [ Tablet] 1 tab PO ONCE 06/26/24 [History] Follow up Appointment(s)/Referral(s): Chrissy Nagel DO [Doctor of Osteopathic Medicine] - 6 Weeks Discharge Disposition: HOME SELF-CARE
[2024-07-31] MEDS: HYDROCORTISONE 2.5% RECTAL CREAM 30 GM TUBE RECTAL PRN (10:55)
[2024-07-31 16:19] VITALS: BP 118/73; PULSE 96; TEMP 98.1
--- NOTE | 2024-08-01 14:11 | CDI ---
Documentation Clarification Form Date: 08/01/2024 01:58:28 PM From: Angelica Rojas Admit Date: 07/29/2024 04:29:00 PM Patient Name: Ruthann Sanderson Visit Number: [id number] Discharge Date: 07/31/2024 06:00:00 PM ATTENTION: The Clinical Documentation Specialists (CDI) and [facility] Coding Staff appreciate your assistance in clarifying documentation. Please respond to the clarification below the line at the bottom and electronically sign. The CDI & [facility] Coding staff will review the response and follow-up if needed. Please note: Queries are made part of the Legal Health Record. If you have any questions, please contact the author of this message via ITS. Doctor/Provider: Chrissy Nagel Your patient has spontaneous rupture of membranes around 1600. Cervix was 1/70/- 2 and she is ivelisse irregularly. Based on this information and the findings below, is there an additional diagnosis that is clinically appropriate for this patient? Patient history/risk factors: patient is a 29 year old . History of a few ectopic pregnancies as well as miscarriages. This is IVF. Clinical Indicators: patient presented at 35 weeks 1 day with spontaneous rupture of membranes at 1600. Her cervix is 1/70/-2 and she is ivelisse irregularly. Soon after she arrived she was 2 cm and did get an epidural. When she laid down from the epidural her cervix was 9 cm dilated. Soon after she was fully dilated and delivered a viable female . Treatment: epidural and vaginal delivery with first degree laceration repair Is there an additional diagnosis that is clinically appropriate for this patient? [ x ] premature rupture of membranes, onset of labor within 24 hours of rupture [ ] No additional diagnosis/Not clinically significant [ ] Unable to determine [ ] Other, please specify MTDD
== END 2024-07-31 18:00 | disposition home or self-care (01) | DRG 807 ==
LOC: FBPOP 16:11 → 4FBP 16:29
PROVIDERS: ADMIT Obstetrics & Gynecology; ATTEND Obstetrics & Gynecology
PROC: 10E0XZZ Delivery of Products of Conception, External Approach (ICD-10-PCS; principal; 2024-07-29)
PROC: 0HQ9XZZ Repair Perineum Skin, External Approach (ICD-10-PCS; principal; 2024-07-29)
DX: O42.013 Preterm premature rupture of membranes, onset of labor within 24 hours of rupture, third trimester (principal); O70.0 First degree perineal laceration during delivery; Z79.82 Long term (current) use of aspirin; Z79.899 Other long term (current) drug therapy; Z3A.35 35 weeks gestation of pregnancy; Z37.0 Single live birth
CPT/HCPCS: 59025; 84112; 85025; 86850; 86900; 86901; 88307; 99213